=== PATIENT | female | born 1945 | race Caucasian/White ===

== ENCOUNTER 2016-06-03 20:51 | Emergency (ER) | payer OTHER ==
[2016-06-03 22:40] LABS: Hematocrit 37 % (35-47); Hemoglobin 12.5 g/dl (12.0-16.0); Mean Corpuscular HGB Conc 34 g/dl (31-36); Mean Corpuscular Hemoglobin 30 pg (27-31); Mean Corpuscular Volume 90 fL (80-97); Mean Platelet Volume 10 um3 (7.4-10.4); Red Blood Count 4.16 10^6/ul (4.0-5.4); Red Cell Distribution Width 14 % (10.5-15)
--- NOTE | 2016-06-03 22:50 | RAD ---
Indication: Palpitations. 2 views of the chest including dual energy PA views demonstrate no mediastinal shift. Heart is of normal size and configuration. Lung beaver are clear. When compared to previous exam of September 25, 2015 no significant change is noted. IMPRESSION: No active cardiopulmonary disease is noted.
[2016-06-03 22:57] LABS: Albumin 3.8 g/dL (3.2-5.2); BUN/Creatinine Ratio 17.2 (8-20); Calcium 9.3 mg/dL (8.6-10.3); EGFR Non-African American 64.6 (>60); Globulin 2.9 g/dL (2-4); Magnesium 1.8 mg/dL (1.9-2.7); Potassium 3.9 mmol/L (3.5-5.0); Total Bilirubin 0.3 mg/dL (0.2-1.0); Total Protein 6.7 g/dL (6.4-8.9)
--- NOTE | 2016-06-03 23:10 | ED ---
taylor Miller Timothy, scribed for Jimmy Nice MD on 06/03/16 at 2134 . Palpitations / Dysrhythmia - HPI Summary HPI Summary: Dyana Singleton is a 70 yo female presenting to [facility] with irregular heart beat for the past 3 days with accompanying CP. She states she felt dizzy, which was alleviated when laying down. She has also noticed an increase in her blood pressure. She states she has a Hx of Afib. her MHx includes HTN, Afib, DVT, asthma, colitis, GI bleed, DM II, schizophrenia, bipolar disorder, anxiety. - History of Current Complaint Chief Complaint: EDDysrhythmPalp Time Seen by Provider: 06/03/16 21:30 Hx Obtained From: Patient Onset/Duration: Sudden Onset Timing: Intermittent Episodes Lasting: Severity Initially: Moderate Severity Currently: Moderate Character: Fast, Irregular Associated Signs & Symptoms: Dizzy - Allergy/Home Medications Allergies/Adverse Reactions: Allergies Allergy/AdvReac Type Severity Reaction Status Date / Time Codeine Allergy Bleeding Verified 06/03/16 20:56 PMH/Surg Hx/FS Hx/Imm Hx Endocrine/Hematology History: Reports: Hx Diabetes - Type 2 Cardiovascular History: Reports: Hx Deep Vein Thrombosis, Hx Hypertension Denies: Hx Congestive Heart Failure Respiratory History: Reports: Hx Asthma GI History: Reports: Hx Gall Bladder Disease - cholecystectomy, Hx Hiatal Hernia Musculoskeletal History: Reports: Hx Arthritis, Hx Back Problems - arthritis in lower back Sensory History: Reports: Hx Contacts or Glasses Denies: Hx Cataracts, Hx Eye Injury, Hx Eye Prosthesis, Hx Glaucoma, Hx Legally Blind, Hx Macular Degeneration, Hx Deafness, Hx Hearing Aid, Hx Hearing Problem, Other Sensory Impairments Opthamlomology History: Reports: Hx Contacts or Glasses Denies: Hx Cataracts, Hx Eye Injury, Hx Eye Prosthesis, Hx Glaucoma, Hx Legally Blind, Hx Macular Degeneration, Other Sensory Impairments Neurological History: Denies: Hx Dementia, Hx Developmental Delay, Hx Headaches, Hx Migraine, Hx Nerve Disease, Hx Seizures, Hx Spinal Cord Injury, Hx Transient Ischemic Attacks (TIA), Other Neuro Impairments/Disorders Psychiatric History: Reports: Hx Anxiety, Hx Schizophrenia, Hx Bipolar Disorder Denies: Hx Eating Disorder, Hx of Violent Episodes Against Others - Cancer History Cancer Type, Location and Year: breast - Surgical History Surgery Procedure, Year, and Place: right mastectomy, cholecystectomy, appendectomy Infectious Disease History: No Infectious Disease History: Denies: Hx Clostridium Difficile, Hx Hepatitis, Hx Human Immunodeficiency Virus (HIV), Hx of Known/Suspected MRSA, Hx Shingles, Hx Tuberculosis, History Other Infectious Disease, Traveled Outside the [place] in Last 30 Days - Family History Known Family History: Positive: Hypertension, Other - psychotic disorder, depression, alcohol abuse Negative: Cardiac Disease, Diabetes - Social History Alcohol Use: None Substance Use Type: Reports: None Smoking Status (MU): Never Smoked Tobacco Have You Smoked in the Last Year: No Review of Systems Constitutional: Other - high blood pressure Eyes: Negative ENT: Negative Positive: Palpitations Respiratory: Negative Gastrointestinal: Negative Genitourinary: Negative Musculoskeletal: Negative Skin: Negative Neurological: Other - dizzy Psychological: Normal All Other Systems Reviewed And Are Negative: Yes Physical Exam Triage Information Reviewed: Yes Vital Signs On Initial Exam: Initial Vitals Temp Pulse Resp BP Pulse Ox 97.9 F 91 18 228/89 96 06/03/16 20:55 06/03/16 20:55 06/03/16 20:55 06/03/16 20:55 06/03/16 20:55 Vital Signs Reviewed: Yes Appearance: Positive: Well-Appearing, No Pain Distress Skin: Positive: Warm Head/Face: Positive: Normal Head/Face Inspection Eyes: Positive: NORMA ENT: Positive: Hearing grossly normal Neck: Positive: Supple Respiratory/Lung Sounds: Positive: Clear to Auscultation, Breath Sounds Present Cardiovascular: Positive: RRR Abdomen Description: Positive: Nontender, Soft Bowel Sounds: Positive: Present Musculoskeletal: Positive: Strength/ROM Intact Diagnostics - Vital Signs Vital Signs Temp Pulse Resp BP Pulse Ox 06/03/16 20:55 97.9 F 91 18 228/89 96 - Laboratory Lab Results: Lab Results 06/03/16 06/03/16 06/03/16 Range/Units 22:27 22:27 22:27 WBC 8.0 (3.5-10.8) 10^3/ul RBC 4.16 (4.0-5.4) 10^6/ul Hgb 12.5 (12.0-16.0) g/dl Hct 37 (35-47) % MCV 90 (80-97) fL MCH 30 (27-31) pg MCHC 34 (31-36) g/dl RDW 14 (10.5-15) % Plt Count 186 (150-450) 10^3/ul MPV 10 (7.4-10.4) um3 Neut % (Auto) 69.1 (38-83) % Lymph % (Auto) 22.3 L (25-47) % [place] % (Auto) 6.6 (1-9) % Eos % (Auto) 1.3 (0-6) % Baso % (Auto) 0.7 (0-2) % Absolute Neuts (auto) 5.5 (1.5-7.7) 10^3/ul Absolute Lymphs (auto) 1.8 (1.0-4.8) 10^3/ul Absolute Monos (auto) 0.5 (0-0.8) 10^3/ul Absolute Eos (auto) 0.1 (0-0.6) 10^3/ul Absolute Basos (auto) 0.1 (0-0.2) 10^3/ul Absolute Nucleated RBC 0 10^3/ul Nucleated RBC % 0 Sodium 139 (133-145) mmol/L Potassium 3.9 (3.5-5.0) mmol/L Chloride 105 (101-111) mmol/L Carbon Dioxide 28 (22-32) mmol/L Anion Gap 6 (2-11) mmol/L BUN 15 (6-24) mg/dL Creatinine 0.87 (0.51-0.95) mg/dL Est GFR ( Amer) 83.0 (>60) Est GFR (Non-Af Amer) 64.6 (>60) BUN/Creatinine Ratio 17.2 (8-20) Glucose 150 H (70-100) mg/dL Lactic Acid 1.6 (0.5-2.0) mmol/L Calcium 9.3 (8.6-10.3) mg/dL Magnesium 1.8 L (1.9-2.7) mg/dL Total Bilirubin 0.30 (0.2-1.0) mg/dL AST 14 (13-39) U/L ALT 10 (7-52) U/L Alkaline Phosphatase 59 (34-104) U/L Troponin I 0.00 (<0.04) ng/mL Total Protein 6.7 (6.4-8.9) g/dL Albumin 3.8 (3.2-5.2) g/dL Globulin 2.9 (2-4) g/dL Albumin/Globulin Ratio 1.3 (1-3) TSH Pending Result Diagrams: 06/03/16 22:27 06/03/16 22:27 Lab Statement: Any lab studies that have been ordered have been reviewed, and results considered in the medical decision making process. - Radiology CXR Xray Interpretation: No Acute Changes - IMPRESSION: No active cardiopulmonary disease is noted. Radiology Interpretation Completed By: Radiologist - EKG 2136 Cardiac Rate: NL - 81 BPM EKG Interpretation: NSR @ 81 BPM, normal EKG. Re-Evaluation - Re-Evaluation First Eval Re-Evaluation Time: 23:25 Change: Unchanged Comment: Pt is aware of the results of her lab and imaging studies. Course/Dx - Course Assessment/Plan: Dyana Singleton is a 70 yo female presenting to [facility] with heart palpitations, dizziness, and increasing blood pressure for the past 3 days. Her EKG was WNL. Her CXR suggests no active cardiopulmonary disease. After clinical examination and review of her EKG, imaging, and lab studies, she will be discharged home with palpitations and appropriate instructions. - Diagnoses Differential Diagnosis/HQI/PQRI: Positive: Other - palpitations Provider Diagnoses: Heart palpitations Discharge - Discharge Plan Condition: Stable Disposition: HOME Patient Education Materials: Palpitations (ED) Referrals: Bird Gonzales MD [Primary Care Provider] - 2 Days Additional Instructions: Please follow up with your primary care physician regarding your visit to the emergency department today. Return to the emergency department with any new or recurring symptoms. The documentation as recorded by the taylor gooden Timothy accurately reflects the service I personally performed and the decisions made by me, Jimmy Nice MD.
[2016-06-03 23:38] LABS: TSH (Thyroid Stimulating Horm) 2.31 mcIU/mL (0.34-5.60)
[2016-06-03 23:46] VITALS: BP 190/90
== END 2016-06-03 23:44 | disposition home or self-care (01) ==
LOC: ED 20:51
DX: R00.2 Palpitations (principal); R42 Dizziness and giddiness
CPT/HCPCS: 36415; 71020; 80053; 83605; 83735; 84443; 84484; 85025; 93005; 99283

== ENCOUNTER 2017-09-14 11:39 | Emergency (ER) | payer MEDICARE ==
[2017-09-14 12:46] LABS: ABS Basophils 0.1 10^3/ul (0-0.2); ABS Eosinophils 0.1 10^3/ul (0-0.6); ABS Lymphocytes 1.5 10^3/ul (1.0-4.8); ABS Monocytes 0.5 10^3/ul (0-0.8); ABS Neutrophils 4.6 10^3/ul (1.5-7.7); ABS Nucleated RBC 0 10^3/ul; Eosinophil % 1.1 % (0-6); Hematocrit 40 % (35-47); Hemoglobin 13.3 g/dl (12.0-16.0); Lymphocyte % 21.9 % (25-47); Mean Corpuscular HGB Conc 34 g/dl (31-36); Mean Corpuscular Hemoglobin 30 pg (27-31); Mean Corpuscular Volume 88 fL (80-97); Mean Platelet Volume 9.7 um3 (7.4-10.4); Nucleated Red Blood Cells % 0.1; Platelet Count 193 10^3/ul (150-450); Red Blood Count 4.48 10^6/ul (4.00-5.40); Red Cell Distribution Width 14 % (10.5-15); White Blood Count 6.6 10^3/ul (3.5-10.8)
--- NOTE | 2017-09-14 12:59 | RAD ---
HISTORY: WEAKNESS COMPARISONS: June 03, 2016 VIEWS: 1: frontal portable view of the chest at 12:46 PM FINDINGS: LINES AND TUBES: None. CARDIOMEDIASTINAL SILHOUETTE: The cardiomediastinal silhouette is normal for portable technique. PLEURA: The costophrenic angles are sharp. No pleural abnormalities are noted. LUNG PARENCHYMA: The lungs are clear. ABDOMEN: The upper abdomen is clear. There is no subphrenic gas. BONES AND SOFT TISSUES: No bone or soft tissue abnormalities are noted. IMPRESSION: NO ACTIVE CARDIOPULMONARY DISEASE.
--- NOTE | 2017-09-14 13:00 | ED ---
Dizziness - HPI Summary HPI Summary: This is Zuly gooden, documenting for attending, Chuy Coffey MD. This patient is a 72 year old F presenting to [facility] with a chief complaint of sudden dizziness while at the [facility] today. She states that the nurse at the facility took her blood pressure, and she was found to be orthostatic with a BP of 134/70 laying, 118/80 sitting, and 80/70 standing. Patient reports recent fatigue for the past few days without coughing, vomiting , and urinary symptoms. Denies LOC. She reports a new diuretic, spironolactone, that she began taking on the 09/01/17. She additionally reports mild intermittent abdominal for the past few weeks. - History Of Current Complaint Chief Complaint: EDDizziness Stated Complaint: NEAR SYNCOPE,LOW BP Time Seen by Provider: 09/14/17 12:22 Hx Obtained From: Patient Onset/Duration: Suddenly Character: Dizzy Aggravating Factor(s): Supine To Erect Alleviating Factor(s): Lying Down Associated Signs And Symptoms: Positive: Change In Medication - Allergies/Home Medications Allergies/Adverse Reactions: Allergies Allergy/AdvReac Type Severity Reaction Status Date / Time codeine Allergy Bleeding Verified 09/14/17 12:03 Home Medications: Home Medications Albuterol HFA INHALER* [Ventolin HFA Inhaler*] 2 puff INH Q4H PRN 09/14/17 [ History Confirmed 09/14/17] Carvedilol TAB* [Coreg TAB*] 12.5 mg PO BID 09/14/17 [History Confirmed 09/14/17 ] Cholecalciferol TAB* [Vitamin D TAB*] 1,000 unit PO DAILY 09/14/17 [History Confirmed 09/14/17] Cyanocobalamin TAB* [Vitamin B12 TAB*] 500 mcg PO DAILY 09/14/17 [History Confirmed 09/14/17] Dicyclomine CAP* [Bentyl CAP*] 10 mg PO TID PRN 09/14/17 [History Confirmed ] Escitalopram (NF) [Lexapro 20 mg (NF)] 20 mg PO DAILY 09/14/17 [History Confirmed 09/14/17] Lisinopril TAB* [Prinivil TAB 10 MG*] 20 mg PO BID 09/14/17 [History Confirmed 09/14/17] LoraTADine TAB(NF) [Claritin 10 MG TAB(NF)] 10 mg PO DAILY PRN 09/14/17 [ History Confirmed 09/14/17] PMH/Surg Hx/FS Hx/Imm Hx Endocrine/Hematology History: Reports: Hx Diabetes - Type 2 Cardiovascular History: Reports: Hx Deep Vein Thrombosis, Hx Hypertension Denies: Hx Congestive Heart Failure Respiratory History: Reports: Hx Asthma GI History: Reports: Hx Gall Bladder Disease - cholecystectomy, Hx Hiatal Hernia Musculoskeletal History: Reports: Hx Arthritis, Hx Back Problems - arthritis in lower back Sensory History: Reports: Hx Contacts or Glasses Denies: Hx Cataracts, Hx Eye Injury, Hx Eye Prosthesis, Hx Glaucoma, Hx Legally Blind, Hx Macular Degeneration, Hx Deafness, Hx Hearing Aid, Hx Hearing Problem, Other Sensory Impairments Opthamlomology History: Reports: Hx Contacts or Glasses Denies: Hx Cataracts, Hx Eye Injury, Hx Eye Prosthesis, Hx Glaucoma, Hx Legally Blind, Hx Macular Degeneration, Other Sensory Impairments Neurological History: Denies: Hx Dementia, Hx Developmental Delay, Hx Headaches, Hx Migraine, Hx Nerve Disease, Hx Seizures, Hx Spinal Cord Injury, Hx Transient Ischemic Attacks (TIA), Other Neuro Impairments/Disorders Psychiatric History: Reports: Hx Anxiety, Hx Schizophrenia, Hx Bipolar Disorder Denies: Hx Eating Disorder, Hx of Violent Episodes Against Others - Cancer History Cancer Type, Location and Year: breast - Surgical History Surgery Procedure, Year, and Place: right mastectomy, cholecystectomy, appendectomy Infectious Disease History: No Infectious Disease History: Denies: Hx Clostridium Difficile, Hx Hepatitis, Hx Human Immunodeficiency Virus (HIV), Hx of Known/Suspected MRSA, Hx Shingles, Hx Tuberculosis, History Other Infectious Disease, Traveled Outside the [place] in Last 30 Days - Family History Known Family History: Positive: Hypertension, Other - psychotic disorder, depression, alcohol abuse Negative: Cardiac Disease, Diabetes - Social History Alcohol Use: None Substance Use Type: Reports: None Smoking Status (MU): Never Smoked Tobacco Have You Smoked in the Last Year: No Review of Systems Positive: Fatigue. Negative: Fever, Chills Negative: Erythema Negative: Sore Throat Negative: Chest Pain Negative: Shortness Of Breath, Cough Negative: Abdominal Pain, Vomiting, Nausea Negative: dysuria, hematuria Negative: Myalgia, Edema Neurological: Other - dizziness Negative: Headache All Other Systems Reviewed And Are Negative: Yes Physical Exam - Summary Physical Exam Summary: Constitutional: Well-developed, Well-nourished, Alert. (-) Distressed Skin: Warm, Dry HENT: Normocephalic; Atraumatic Eyes: Conjunctiva normal Neck: Musculoskeletal ROM normal neck. (-) JVD, (-) Stridor, (-) Tracheal deviation Cardio: Rhythm regular, rate normal, Heart sounds normal; Intact distal pulses; The pedal pulses are 2+ and symmetric. Radial pulses are 2+ and symmetric. (-) Murmur Pulmonary/Chest wall: Effort normal. (-) Respiratory distress, (-) Wheezes, (-) Rales Abd: Soft, (-), epigastric tenderness, (-) Distension, (-) Guarding, (-) Rebound Musculoskeletal: (-) Edema Lymph: (-) Cervical adenopathy Neuro: Alert, Oriented x3 Psych: Mood and affect Normal Triage Information Reviewed: Yes Vital Signs On Initial Exam: Initial Vitals Temp Pulse Resp BP Pulse Ox 97.8 F 63 18 157/99 98 09/14/17 11:59 09/14/17 11:59 09/14/17 11:59 09/14/17 11:59 09/14/17 11:59 Vital Signs Reviewed: Yes Diagnostics - Vital Signs Vital Signs Temp Pulse Resp BP Pulse Ox 09/14/17 11:59 97.8 F 63 18 157/99 98 - Laboratory Lab Results: Lab Results 09/14/17 Range/Units 12:35 WBC 6.6 (3.5-10.8) 10^3/ul RBC 4.48 (4.00-5.40) 10^6/ul Hgb 13.3 (12.0-16.0) g/dl Hct 40 (35-47) % MCV 88 (80-97) fL MCH 30 (27-31) pg MCHC 34 (31-36) g/dl RDW 14 (10.5-15) % Plt Count 193 (150-450) 10^3/ul MPV 9.7 (7.4-10.4) um3 Neut % (Auto) 69.1 (38-83) % Lymph % (Auto) 21.9 L (25-47) % [place] % (Auto) 7.1 H (0-7) % Eos % (Auto) 1.1 (0-6) % Baso % (Auto) 0.8 (0-2) % Absolute Neuts (auto) 4.6 (1.5-7.7) 10^3/ul Absolute Lymphs (auto) 1.5 (1.0-4.8) 10^3/ul Absolute Monos (auto) 0.5 (0-0.8) 10^3/ul Absolute Eos (auto) 0.1 (0-0.6) 10^3/ul Absolute Basos (auto) 0.1 (0-0.2) 10^3/ul Absolute Nucleated RBC 0 10^3/ul Nucleated RBC % 0.1 Result Diagrams: 09/14/17 12:35 09/14/17 12:35 Lab Statement: Any lab studies that have been ordered have been reviewed, and results considered in the medical decision making process. - Radiology CXR Radiology Interpretation Completed By: Radiologist - NO ACTIVE CARDIOPULMONARY DISEASE. ED Physician has reviewed this report. - EKG 1239 Cardiac Rate: Bradycardia - 57 BPM EKG Rhythm: Sinus Bradycardia EKG Interpretation: no STEMI Dizzy Course/Dx - Course Course Of Treatment: 72 year old F presenting to [facility] with a chief complaint of sudden dizziness while at the [facility] today. She states that the nurse at the facility took her blood pressure, and she was found to be orthostatic with a BP of 134/70 laying, 118/80 sitting, and 80/70 standing. Patient reports recent fatigue for the past few days without coughing, vomiting , and urinary symptoms. Denies LOC. She reports a new diuretic, spironolactone, that she began taking on the 09/01/17. EKG and CXR are unremarkable. Bloodwork is remarkable. UA is indicative of a UTI. Patient is givn Bactrim and IV Fluids. Patient is instructed to stop taking spironolactone and is discharged. - Diagnoses Provider Diagnoses: Orthostatic hypotension, Dehydration, Medication adverse effect, UTI (urinary tract infection) Discharge - Sign-Out/Discharge Documenting (check all that apply): Patient Departure - Discharge Plan Condition: Stable Disposition: HOME Prescriptions: Sulfamethox/Trimethoprim DS* [Bactrim DS 800/160 TAB*] 1 tab PO BID #14 tab Patient Education Materials: Dehydration (ED), Hypotension (ED) Referrals: Bird Gonzales MD [Primary Care Provider] - 2 Days Additional Instructions: Stop using the Spironolactone. RETURN TO THE EMERGENCY DEPARTMENT FOR CHANGING OR WORSENING SYMPTOMS.
[2017-09-14 13:04] LABS: EGFR Non-African American 66.8 (>60)
[2017-09-14] MEDS ORDERED: NS 0.9% 1000 ML* 1,000 ML IV ONE (15:18)
[2017-09-14 16:25] LABS: Urine Appearance Cloudy; Urine Blood 1+ (Negative); Urine Color Yellow; Urine Ketones Negative (Negative); Urine Protein Negative (Negative); Urine Red Blood Cell Trace(0-2/hpf) (Absent); Urine Specific Gravity 1.003 (1.010-1.030); Urine Urobilinogen Negative (Negative); Urine White Blood Cell Trace(0-5/hpf) (Absent)
[2017-09-14] MEDS ORDERED: Sulfamethox/Trimethoprim DS 800/160* TAB PO ONE (18:08)
[2017-09-14 18:40] VITALS: BP 117/93
== END 2017-09-14 18:37 | disposition home or self-care (01) ==
LOC: ED 11:39
DX: I95.1 Orthostatic hypotension (principal); E86.0 Dehydration; N39.0 Urinary tract infection, site not specified; R42 Dizziness and giddiness; T50.0X5A Adverse effect of mineralocorticoids and their antagonists, initial encounter; Y92.9 Unspecified place or not applicable; R53.83 Other fatigue; R00.1 Bradycardia, unspecified; I10 Essential (primary) hypertension; Z88.5 Allergy status to narcotic agent; F41.9 Anxiety disorder, unspecified; F20.9 Schizophrenia, unspecified; F31.9 Bipolar disorder, unspecified; Z82.49 Family history of ischemic heart disease and other diseases of the circulatory system; Z81.8 Family history of other mental and behavioral disorders; Z81.1 Family history of alcohol abuse and dependence
CPT/HCPCS: 36415; 71045; 80053; 81003; 81015; 83605; 84484; 85025; 87086; 93005; 99283

== ENCOUNTER 2017-09-23 15:37 | Inpatient (IN) | payer MEDICARE ==
[2017-09-23] MEDS ORDERED: LORazepam TAB(*) 1 MG PO ONE (16:34)
--- NOTE | 2017-09-23 16:34 | ED ---
Psychiatric Complaint - HPI Summary HPI Summary: This is berkley Fiore documenting for attending Johny Ashley MD. This patient is a 72 year old F presenting to [facility] accompanied by her daughter and psychology lecturer with a chief complaint of dissociating since yesterday. Patient denies any pain, cough, or rhinorrhea. The psych worker states that the pt brought a knife into her clinic because she was worried about SI. Pt is terrified of hospitals and doctors, per social media analyst. Pts daughter states that the pt came in for low BP last week. The initial trauma related to the dissociating occurred in childhood. - History Of Current Complaint Chief Complaint: EDMentalHealth Time Seen by Provider: 09/23/17 16:14 Hx Obtained From: Family/Edi Consultant - social media analyst, daughter Onset/Duration: Sudden Onset Timing: Constant Severity Initially: Severe Severity Currently: Severe Character: Fearful, Anxious Has Suicidal: Reports: Demonstrates Gesture - brought in knife to psych clinic bc of possible SI - Allergies/Home Medications Allergies/Adverse Reactions: Allergies Allergy/AdvReac Type Severity Reaction Status Date / Time codeine Allergy Bleeding Verified 09/23/17 16:00 PMH/Surg Hx/FS Hx/Imm Hx Endocrine/Hematology History: Reports: Hx Diabetes - Type 2 Cardiovascular History: Reports: Hx Deep Vein Thrombosis, Hx Hypertension Denies: Hx Congestive Heart Failure Respiratory History: Reports: Hx Asthma GI History: Reports: Hx Gall Bladder Disease - cholecystectomy, Hx Hiatal Hernia Musculoskeletal History: Reports: Hx Arthritis, Hx Back Problems - arthritis in lower back Sensory History: Reports: Hx Contacts or Glasses Denies: Hx Cataracts, Hx Eye Injury, Hx Eye Prosthesis, Hx Glaucoma, Hx Legally Blind, Hx Macular Degeneration, Hx Deafness, Hx Hearing Aid, Hx Hearing Problem, Other Sensory Impairments Opthamlomology History: Reports: Hx Contacts or Glasses Denies: Hx Cataracts, Hx Eye Injury, Hx Eye Prosthesis, Hx Glaucoma, Hx Legally Blind, Hx Macular Degeneration, Other Sensory Impairments Neurological History: Denies: Hx Dementia, Hx Developmental Delay, Hx Headaches, Hx Migraine, Hx Nerve Disease, Hx Seizures, Hx Spinal Cord Injury, Hx Transient Ischemic Attacks (TIA), Other Neuro Impairments/Disorders Psychiatric History: Reports: Hx Anxiety, Hx Schizophrenia, Hx Bipolar Disorder Denies: Hx Eating Disorder, Hx of Violent Episodes Against Others - Cancer History Cancer Type, Location and Year: breast - Surgical History Surgery Procedure, Year, and Place: right mastectomy, cholecystectomy, appendectomy Infectious Disease History: No Infectious Disease History: Denies: Hx Clostridium Difficile, Hx Hepatitis, Hx Human Immunodeficiency Virus (HIV), Hx of Known/Suspected MRSA, Hx Shingles, Hx Tuberculosis, History Other Infectious Disease, Traveled Outside the [place] in Last 30 Days - Family History Known Family History: Positive: Hypertension, Other - psychotic disorder, depression, alcohol abuse Negative: Cardiac Disease, Diabetes - Social History Alcohol Use: None Substance Use Type: Reports: None Smoking Status (MU): Never Smoked Tobacco Have You Smoked in the Last Year: No Review of Systems Negative: Nasal Discharge Negative: Cough Negative: Myalgia Positive: Anxious, Other - dissociating All Other Systems Reviewed And Are Negative: No - Comments Additional Review of Systems Comments: Unable to obtain review of systems secondary to patient's inability to cooperate with questioning Physical Exam - Summary Physical Exam Summary: Appearance: Well-appearing, Well-nourished Skin: Warm, dry, no obvious rash Eyes: sclera anicteric, no conjunctival pallor ENT: mucous membranes moist Neck: deferred Respiratory: No signs of respiratory distress Cardiovascular: Appears well perfused, pulses are nml Abdomen: deferred Musculoskeletal: Moving all 4 extremities without obvious discomfort Neurological: Awake and alert, mentation is normal, speech is fluent and appropriate Psychiatric: quite anxious, crying GCS: 15 Triage Information Reviewed: Yes Vital Signs On Initial Exam: Initial Vitals Temp Pulse Resp BP Pulse Ox 99.7 F 67 20 129/88 97 09/23/17 15:53 09/23/17 15:53 09/23/17 15:53 09/23/17 15:53 09/23/17 15:53 Vital Signs Reviewed: Yes Diagnostics - Vital Signs Vital Signs Temp Pulse Resp BP Pulse Ox 09/23/17 15:53 99.7 F 67 20 129/88 97 - Laboratory Result Diagrams: 09/23/17 16:30 09/23/17 16:30 Lab Statement: Any lab studies that have been ordered have been reviewed, and results considered in the medical decision making process. - CT Brain' CT Interpretation Completed By: Radiologist - Chronic appearing changes as described above without CT evidence of acute intracranial abnormality. ED Physician has reviewed this report Course/Dx - Course Course Of Treatment: 72-year-old woman with mental complaints, history of same, no history of any recent medical illness and screening laboratory studies are unremarkable. The patient is cleared for mental health evaluation. - Differential Dx/Clinical Impression Differential Diagnosis/HQI/PQRI: Positive: Acute Psychosis Provider Diagnosis: Unspecified psychosis - Physician Notifications Discussed Care Of Patient With: Yariel Callahan Time Discussed With Above Provider: 19:12 - unspecified psychosis, admit to [facility] Discharge - Sign-Out/Discharge Documenting (check all that apply): Patient Departure - Admit to [facility] - Discharge Plan Condition: Stable Disposition: PSYCHIATRIC FACILITY-OTHER - Billing Disposition and Condition Condition: STABLE Disposition: Psychiatric Facility Other
[2017-09-23 16:38] LABS: ABS Basophils 0.1 10^3/ul (0-0.2); ABS Eosinophils 0.1 10^3/ul (0-0.6); ABS Lymphocytes 1.9 10^3/ul (1.0-4.8); ABS Monocytes 0.5 10^3/ul (0-0.8); ABS Neutrophils 6.2 10^3/ul (1.5-7.7); ABS Nucleated RBC 0 10^3/ul; Eosinophil % 0.7 % (0-6); Hematocrit 40 % (35-47); Hemoglobin 13.5 g/dl (12.0-16.0); Mean Corpuscular HGB Conc 34 g/dl (31-36); Mean Corpuscular Hemoglobin 30 pg (27-31); Mean Corpuscular Volume 88 fL (80-97); Mean Platelet Volume 10.3 um3 (7.4-10.4); Nucleated Red Blood Cells % 0.1; Platelet Count 207 10^3/ul (150-450); Red Blood Count 4.53 10^6/ul (4.00-5.40); Red Cell Distribution Width 14 % (10.5-15); White Blood Count 8.7 10^3/ul (3.5-10.8)
[2017-09-23 16:55] LABS: EGFR Non-African American 67.8 (>60)
[2017-09-23 17:42] LABS: Urine Appearance Clear; Urine Blood Negative (Negative); Urine Color Straw; Urine Ketones Negative (Negative); Urine Protein Negative (Negative); Urine Specific Gravity 1.002 (1.010-1.030); Urine Urobilinogen Negative (Negative)
--- NOTE | 2017-09-23 20:00 | RAD ---
INDICATION: Altered mental status COMPARISON: None. TECHNIQUE: Contiguous axial sections of the brain were obtained from the skull base to the vertex without contrast. FINDINGS: The ventricles, cisterns and sulci mild symmetrical involutional changes. There is a mild degree of periventricular and subcortical white matter hypoattenuation most consistent with mild microvascular disease. The muro-white matter differentiation is adequately maintained and there is no sulcal effacement. No significant focal abnormality or mass effect is present. There is no evidence for intracranial hemorrhage. No significant focal osseous abnormality is present. The visualized portion of the paranasal sinuses appear clear. The mastoid air cells are well aerated bilaterally. IMPRESSION: Chronic appearing changes as described above without CT evidence of acute intracranial abnormality.
[2017-09-23] MEDS ORDERED: Al Hydrox/Mg Hydrox/Simet LIQ* 30 ML UDC PO PRN (22:22)
[2017-09-23] MEDS ORDERED: Dicyclomine CAP* 10 MG PO PRN (22:25)
[2017-09-23] MEDS ORDERED: Cetirizine* 10 MG TAB PO PRN (22:26)
[2017-09-23] MEDS ORDERED: Albuterol HFA INHALER* 8 gm MDI INH PRN (22:30)
[2017-09-23] MEDS: Lisinopril TAB* 10 MG PO SCH (23:39)
[2017-09-23] MEDS: Carvedilol TAB* 6.25 MG PO SCH (23:39)
[2017-09-23] MEDS: Acetaminophen TAB* 325 MG PO PRN (23:43)
[2017-09-24] MEDS: Cholecalciferol TAB* 1000 UNITS PO SCH (08:40)
[2017-09-24] MEDS: Lisinopril TAB* 10 MG PO SCH ×2 (08:40→20:59)
[2017-09-24] MEDS: CMCS: Escitalopram (NF) 10 MG TAB PO SCH (08:41)
[2017-09-24] MEDS: Vitamin THERAPEUTIC TAB PO SCH (08:41)
[2017-09-24] MEDS: Cyanocobalamin TAB* 500 MCG PO SCH (08:41)
[2017-09-24] MEDS: Carvedilol TAB* 6.25 MG PO SCH ×2 (08:42→20:59)
[2017-09-24] MEDS ORDERED: BREXPIPRAZOLE 0.5 MG PO SCH (09:00)
[2017-09-24] MEDS: LORazepam TAB(*) 0.5 MG PO PRN (16:55)
[2017-09-24] MEDS: REXULTI 1 MG PO SCH (21:00)
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
[2017-09-25] MEDS: CMCS: Escitalopram (NF) 10 MG TAB PO SCH (10:08)
[2017-09-25] MEDS: REXULTI 1 MG PO SCH (10:08)
[2017-09-25] MEDS: Lisinopril TAB* 10 MG PO SCH ×2 (10:09→21:35)
[2017-09-25] MEDS: Carvedilol TAB* 6.25 MG PO SCH ×2 (10:09→21:35)
[2017-09-25] MEDS: Vitamin THERAPEUTIC TAB PO SCH (10:10)
[2017-09-25] MEDS: Cyanocobalamin TAB* 500 MCG PO SCH (10:10)
[2017-09-25] MEDS: Cholecalciferol TAB* 1000 UNITS PO SCH (10:10)
[2017-09-26] MEDS: Cyanocobalamin TAB* 500 MCG PO SCH (08:45)
[2017-09-26] MEDS: Vitamin THERAPEUTIC TAB PO SCH (08:45)
[2017-09-26] MEDS: Cholecalciferol TAB* 1000 UNITS PO SCH (08:45)
[2017-09-26] MEDS: Carvedilol TAB* 6.25 MG PO SCH ×2 (08:45→22:13)
[2017-09-26] MEDS: CMCS: Escitalopram (NF) 10 MG TAB PO SCH (08:46)
[2017-09-26] MEDS: Lisinopril TAB* 10 MG PO SCH ×2 (08:47→22:13)
[2017-09-26] MEDS: REXULTI 1 MG PO SCH (08:47)
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
[2017-09-27] MEDS: Cholecalciferol TAB* 1000 UNITS PO SCH (08:16)
[2017-09-27] MEDS: CMCS: Escitalopram (NF) 10 MG TAB PO SCH (08:16)
[2017-09-27] MEDS: Vitamin THERAPEUTIC TAB PO SCH (08:16)
[2017-09-27] MEDS: Carvedilol TAB* 6.25 MG PO SCH ×2 (08:16→19:23)
[2017-09-27] MEDS: Lisinopril TAB* 10 MG PO SCH ×2 (08:16→19:23)
[2017-09-27] MEDS: Cyanocobalamin TAB* 500 MCG PO SCH (08:16)
[2017-09-27] MEDS: REXULTI 1 MG PO SCH (08:17)
[2017-09-27] MEDS ORDERED: BREXPIPRAZOLE 1 MG TABLET PO ONE (11:28)
--- NOTE | 2017-09-27 13:00 | PN ---
MHU: Group Therapy Note - Service Type Service Type: [id number] Group Psychotherapy - Cognitive Behavioral Group Therapy ( CBT):Patient was attentive and participatory in CBT programming this morning, and remained in good behavioral control. Patient expressed positive insights regarding relevant treatment interventions and goals.
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
[2017-09-27] MEDS: LORazepam TAB(*) 0.5 MG PO PRN (19:23)
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
[2017-09-28] MEDS: Cholecalciferol TAB* 1000 UNITS PO SCH (09:28)
[2017-09-28] MEDS: Cyanocobalamin TAB* 500 MCG PO SCH (09:28)
[2017-09-28] MEDS: Carvedilol TAB* 6.25 MG PO SCH ×2 (09:28→20:37)
[2017-09-28] MEDS: Vitamin THERAPEUTIC TAB PO SCH (09:29)
[2017-09-28] MEDS: CMCS: Escitalopram (NF) 10 MG TAB PO SCH (09:29)
[2017-09-28] MEDS: Lisinopril TAB* 10 MG PO SCH ×2 (09:30→20:38)
[2017-09-28] MEDS: BREXPIPRAZOLE 1 MG PO SCH (09:31)
[2017-09-28] MEDS: LORazepam TAB(*) 0.5 MG PO PRN (10:42)
[2017-09-28] MEDS: Prazosin CAP* 1 MG PO SCH (20:39)
[2017-09-29] MEDS: Lisinopril TAB* 10 MG PO SCH ×2 (08:33→21:25)
[2017-09-29] MEDS: Carvedilol TAB* 6.25 MG PO SCH ×2 (08:33→21:25)
[2017-09-29] MEDS: CMCS: Escitalopram (NF) 10 MG TAB PO SCH (08:34)
[2017-09-29] MEDS: Cyanocobalamin TAB* 500 MCG PO SCH (08:34)
[2017-09-29] MEDS: Vitamin THERAPEUTIC TAB PO SCH (08:35)
[2017-09-29] MEDS: BREXPIPRAZOLE 1 MG PO SCH (08:35)
[2017-09-29] MEDS: Cholecalciferol TAB* 1000 UNITS PO SCH (08:35)
--- NOTE | 2017-09-29 16:19 | PN ---
MHU: Group Therapy Note - Service Type Service Type: [id number] Group Psychotherapy - Medication Education Group: Patient was attentive and participatory in group, and remained in good behavioral control. Patient expressed positive insights regarding relevant treatment interventions. Patient stated understanding of material discussed and had appropriate questions.
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
[2017-09-29] MEDS: Prazosin CAP* 1 MG PO SCH (21:25)
[2017-09-29] MEDS: Acetaminophen TAB* 325 MG PO PRN (22:21)
[2017-09-30] MEDS: Vitamin THERAPEUTIC TAB PO SCH (09:51)
[2017-09-30] MEDS: Carvedilol TAB* 6.25 MG PO SCH ×2 (09:51→21:00)
[2017-09-30] MEDS: Lisinopril TAB* 10 MG PO SCH (09:51)
[2017-09-30] MEDS: CMCS: Escitalopram (NF) 10 MG TAB PO SCH (09:52)
[2017-09-30] MEDS: Cholecalciferol TAB* 1000 UNITS PO SCH (09:52)
[2017-09-30] MEDS: Cyanocobalamin TAB* 500 MCG PO SCH (09:52)
[2017-09-30] MEDS: BREXPIPRAZOLE 1 MG PO SCH (09:53)
[2017-09-30] MEDS: Acetaminophen TAB* 325 MG PO PRN (11:00)
[2017-09-30] MEDS: LORazepam TAB(*) 0.5 MG PO PRN (11:01)
[2017-09-30] MEDS: Prazosin CAP* 1 MG PO SCH (21:00)
[2017-10-01] MEDS: BREXPIPRAZOLE 1 MG PO SCH (10:07)
[2017-10-01] MEDS: Carvedilol TAB* 6.25 MG PO SCH ×3 (10:07→21:38)
[2017-10-01] MEDS: Cholecalciferol TAB* 1000 UNITS PO SCH (10:08)
[2017-10-01] MEDS: Lisinopril TAB* 10 MG PO SCH (10:08)
[2017-10-01] MEDS: Cyanocobalamin TAB* 500 MCG PO SCH (10:08)
[2017-10-01] MEDS: Vitamin THERAPEUTIC TAB PO SCH (10:09)
[2017-10-01] MEDS: CMCS: Escitalopram (NF) 10 MG TAB PO SCH (10:14)
[2017-10-01] MEDS: Acetaminophen TAB* 325 MG PO PRN (16:36)
[2017-10-01] MEDS ORDERED: Carvedilol TAB* 6.25 MG PO ONE (17:10)
--- NOTE | 2017-10-01 18:05 | PN ---
Subjective - Subjective Date of Service: 10/01/17 Service Type: 16900 Hosp care 15 min low complexity Subjective: Ms. STRANGE remains low profile and visible on the unit. Her blood pressure was low this morning and she was symptomatic with dizziness. BP meds were on hold in the morning with good response. She actually didn't offer any psychiatric complaint rather said she was fine. Objective - Appearance Appearance: Healthy Appearing, Obese Dysmorphic Features: No Hygiene: Normal Grooming: Fairly Well Kept - Behavior Psychomotor Activities: Normal Exhibits Abnormal Movement: No - Attitude and Relatedness Attitude and Relatedness: Appropriate Eye Contact: Good - Speech Quality: Unpressured Latencies: Normal Quantity: Appropriate - Mood Patient's Decription of Mood: "Fine" - Affect Observed Affect: Non-labile Affect Consistent with: Euthymia - Thought Process Patient's Thought Process: Coherent, Goal Directed Thought Content: No Passive Wish, No Suicidal Planning, No Homicidal Ideation, No Paranoid Ideation - Sensorium Experiencing Hallucinations: No, Sensorium is Clear Type of Hallucinations: Visual: No, Auditory: No, Command: No - Level of Consciousness Level of Consciousness: Alert Orientation: Yes Intact, Yes Orientated to Time, Yes Orientated to Place, Yes Orientated to Person - Impulse Control Impulse Control: Intact - Insight and Judgement Insight and Judgement: Poor - Group Participation Particating in Group Activities: Yes - Medication Management Medication Management Adherence: Yes Assessment - Assessment Merits Inpatient Hospitalization: Consolidate Improvements, Pending Safe DC Plan Inpatient DSM-V Dx: F33.3 Clinical Impression: Doing better today and appears to be at baseline. Plan - Plan Treatment Plan: Name: NANCY STRANGE Birthdate: 1945 [id number] Continued Medication Management: Continue Outpt Medication Medications: Current Medications Acetaminophen (Tylenol Tab*) 650 mg PO Q4H PRN PRN Reason: PAIN or TEMP > 101 F Last Admin: 10/01/17 16:36 Dose: 650 mg Al Hydrox/Mg Hydrox/Simethicone (Maalox Plus*) 30 ml PO Q4H PRN PRN Reason: INDIGESTION Albuterol (Ventolin Hfa Inhaler*) 2 puff INH Q4H PRN PRN Reason: SHORTNESS OF BREATH Brexpiprazole (Rexulti) 2 mg PO DAILY [facility] Last Admin: 10/01/17 10:07 Dose: 2 mg Carvedilol (Coreg Tab*) 12.5 mg PO BID [facility] Last Admin: 10/01/17 16:46 Dose: 12.5 mg Cetirizine HCl (Zyrtec*) 10 mg PO DAILY PRN PRN Reason: ALLERGIES Cholecalciferol (Vitamin D Tab*) 1,000 units PO DAILY [facility] Last Admin: 10/01/17 10:08 Dose: 1,000 units Cyanocobalamin (Vitamin B12 Tab*) 500 mcg PO DAILY [facility] Last Admin: 10/01/17 10:08 Dose: 500 mcg Dicyclomine HCl (Bentyl Cap*) 10 mg PO TID PRN PRN Reason: -PAIN Escitalopram Oxalate (Lexapro (Nf)) 20 mg PO DAILY [facility] Last Admin: 10/01/17 10:14 Dose: 20 mg Lisinopril (Prinivil Tab*) 20 mg PO DAILY [facility] Last Admin: 10/01/17 10:08 Dose: Not Given Lorazepam (Ativan Tab(*)) 0.5 mg PO Q6H PRN PRN Reason: ANXIETY Last Admin: 09/30/17 11:01 Dose: 0.5 mg Multivitamins (Theragran Tab*) 1 tab PO DAILY [facility] Last Admin: 10/01/17 10:09 Dose: 1 tab Prazosin HCl (Minipress Cap*) 2 mg PO BEDTIME [facility] Last Admin: 09/30/17 21:00 Dose: 2 mg - Discharge Plan Discharge Plan: [facility]
[2017-10-01] MEDS: Prazosin CAP* 1 MG PO SCH (20:47)
[2017-10-02] MEDS: LORazepam TAB(*) 0.5 MG PO PRN ×2 (04:26→17:53)
[2017-10-02] MEDS: Lisinopril TAB* 10 MG PO SCH (09:34)
[2017-10-02] MEDS: Cyanocobalamin TAB* 500 MCG PO SCH (09:34)
[2017-10-02] MEDS: Cholecalciferol TAB* 1000 UNITS PO SCH (09:34)
[2017-10-02] MEDS: Vitamin THERAPEUTIC TAB PO SCH (09:35)
[2017-10-02] MEDS: CMCS: Escitalopram (NF) 10 MG TAB PO SCH (09:35)
[2017-10-02] MEDS: Carvedilol TAB* 6.25 MG PO SCH ×2 (09:36→22:39)
[2017-10-02] MEDS: BREXPIPRAZOLE 1 MG PO SCH (09:36)
[2017-10-02] MEDS: Prazosin CAP* 1 MG PO SCH (22:39)
[2017-10-03 07:56] VITALS: BP 157/79
[2017-10-03] MEDS: Carvedilol TAB* 6.25 MG PO SCH (09:04)
[2017-10-03] MEDS: CMCS: Escitalopram (NF) 10 MG TAB PO SCH (09:04)
[2017-10-03] MEDS: BREXPIPRAZOLE 1 MG PO SCH (09:04)
[2017-10-03] MEDS: Lisinopril TAB* 10 MG PO SCH (09:05)
[2017-10-03] MEDS: Cyanocobalamin TAB* 500 MCG PO SCH (09:06)
[2017-10-03] MEDS: Vitamin THERAPEUTIC TAB PO SCH (09:06)
[2017-10-03] MEDS: Cholecalciferol TAB* 1000 UNITS PO SCH (09:06)
[2017-10-03] MEDS: Acetaminophen TAB* 325 MG PO PRN (09:59)
--- NOTE | 2017-10-04 20:10 | DS ---
CC: Dr. Hardwick; Dr. Gonzales; [facility]; Dr. Martinez DISCHARGE SUMMARY: DATE OF ADMISSION: 09/23/17 DATE OF DISCHARGE: 10/03/17 SUPERVISING PSYCHIATRIST: Dr. German Lares. DISCHARGE DIAGNOSIS: Posttraumatic stress disorder. CONDITION AT THE TIME OF DISCHARGE: Improved. The patient is euthymic with bright affect. She ivan es suicidal ideation and reports readiness to be discharged. She states she is eager to return to [facility] and is looking forward to meeting with her therapist and her psychiatrist this week at [facility]. She also reports plan to participate in [facility] program this week. The patient also endorses mild anxiety in regards to being discharged, social environment. Lighting Engineering Technician an d high school social studies tutor validate this. The patient has participated fully on the unit. She has been in beha vioral control, decreased to 30 minute observation and allowed staff pass. She has had associated ep isodes and reports much relief from the use of lorazepam. The patient also is eager to be discharged and follow up directly with international marketing executive, Dr. Martinez to ascertain the need for sleep study. MENTAL STATUS EXAM: The patient is a 72-year-old white female, who appears stated age. She is casua lly dressed in her own clothing and ADLs are completed. She is euthymic with congruent affect. The patient is alert and oriented x3. Eye contact is good. Her speech is soft, articulate and with norm al rhythm. Thought process is logical, goal directed and coherent. Thought content is negative for SI, HI, or passive wish. She denies AH or VH. There is no evidence of perceptual thought dist urbance. Psychomotor activity is normal. Insight and judgment are good. Fund of knowledge is excel lent and intelligence is estimated at average as evidenced by vocabulary and academic achievements. INSTRUCTIONS GIVEN TO THE PATIENT: A. Medications: 1. Brexpiprazole 2 mg p.o. daily. 2. Lexapro 20 mg daily. 3. Lisinopril 20 mg daily. 4. Lorazepam 0.5 mg p.o. b.i.d. p.r.n. anxiety. 5. Prazosin 2 mg p.o. at bedtime. The above medications were currently electronically prescribed to [facility]. The following medicat ions will be resumed by her primary care provider and/or urology nurse: 1. Loratadine 10 mg daily. 2. Dicyclomine 10 mg p.o. t.i.d. p.r.n. 3. Vitamin B12 500 mcg p.o. daily. 4. Vitamin B 1000 units daily. 5. Coreg 12.5 mg p.o. b.i.d. 6. Albuterol inhaler 2 puffs q.4 hours p.r.n. SOB. B. Diet: Low fat, low cholesterol. C. Activity: Ambulation as tolerated. Tobacco cessation is not applicable. There are no pending la bs and the patient is referred to Dr. Martinez for sleep studies. D. Followup Care: The patient will follow up with [facility] and her established provider. She has an appointment with Vito on , 10/06/17, at 9 a.m. and appointment with Dr. Reyes same day at 02:30 p.m. As stated above, she will follow up directly with Dr. Martinez post discharge. She will follow up with urology nurse, Dr. Hardwick, on 10/12/17, at 02:40 p. m. We also rescheduled her stress echocardiogram for 10/17/17, at noon. She will follow up w ith primary care provider, Dr. Gonzales, on 10/11/17, at 2 p.m. E. Substance abuse. Followup is not applicable. HOSPITAL COURSE: Part A: Reason for admission: Please see H and P from Dr. Callahan on 09/23/17. He r full history, the patient presented to the emergency department due to suicidal ideations and incre ased PTSD symptoms. The patient is a 72-year-old female with a known extensive history of mental illness, psychiatric hospitalizations. The patient was last admitted to this hospital in 2016 and has been working diligently with a therapist since then. She has had increased episodes of diss ociation including wandering at night. The patient reports recent increase in audio and visual hallu cinations including seeing blood, cutting her wrist. Part B: Psychiatric treatment rendered: The patient was admitted to the adult behavioral services [email or web address] on involuntary status. Code status was full and she was placed on 15-minute checks for her safet y. She was encouraged to participate in supportive milieu, individual sessions or staff and psycho e ducational groups. Outpatient medications were initially continued by admitting psychiatrist. During the course of admission, the patient was noted to have dissociative episodes. She would prese nt in a repressed manner. She would report hallucinations of seeing blood in the bathroom. She often spoke of assisting in the of someone named Agata. Staff and providers utilized grounding techn ique to reorient the patient, which she was receptive to and able to demonstrate on grounding techniq ues. She has been developing through therapy. We increased her brexpiprazole and added lorazepam p. r.n., continued Lexapro at current dose. Due to patient's cardiac history, this technical proposal writer consulted [facility] patient's current urology nurse, Dr. Hardwick to discuss the use of prazosin to treat PTSD disorder . This was titrated to 2 mg at bedtime and lisinopril was decreased to 20 mg once a day. The patient also had a history of dehydration and UTI. She was encouraged to remain hydrated and given a pitche r with marking to denote hourly intake of fluids. The patient reports this to be helpful and states i ntend to continue this practice at home. Laboratory data while in hospital included a CBC, which was grossly unremarkable. Her chemistry profi le was within normal limits with the exception of a hemoglobin A1c of 6.2, cholesterol was mildly karthik vated at 2.7, TSH normal at 1.79. Urinalysis within normal limits and toxicology was negative. She received a brain CT while in the emergency department, which ruled out acute intracranial abnormality . The patient's granddaughter and [id number] were available for treatment planning and discharge carlito moreno. It was noted that they were very supportive and concerned for patient's welfare. On Tuesday the , the patient reported eagerness to be discharged, however, due to family being out of town and professional resources not being available over the weekend, treatment team decided to monitor th e patient over the weekend. The patient remained hospitalized. She reported some dissociative episo jarrod and was also monitored for orthostatic hypotension. On the day of discharge as stated above, the patient reported readiness for discharge. Her granddaughter was available for discharge process. Th e patient was escorted to Dr. Martinez's office in this building by social work. After her appointment, this technical proposal writer happened to see her in the hallway walking to the entrance and the patient reported rece iving hopeful information in regards to impact of sleep and likely sleep apnea on current symptoms. As stated above, the patient denies suicidal ideations throughout the course of admission. She was g iven information on how to contact this technical proposal writer with questions or concerns post discharge due to oblig ations of treatment in the least restrictive setting, discharge was agreed upon by treatment team. GERBER FAIR, VERIFIER OPERATOR [id number]/CPS #: [id number]
== END 2017-10-03 11:10 | disposition home or self-care (01) | DRG 885 ==
LOC: ED 15:37 → BSU 19:39
PROVIDERS: ADMIT Psychiatry & Neurology Psychiatry; ATTEND Psychiatry & Neurology Psychiatry
DX: F33.3 Major depressive disorder, recurrent, severe with psychotic symptoms (principal); R45.851 Suicidal ideations; E11.9 Type 2 diabetes mellitus without complications; E66.01 Morbid (severe) obesity due to excess calories; I10 Essential (primary) hypertension; Z62.810 Personal history of physical and sexual abuse in childhood; Z62.812 Personal history of neglect in childhood; Z68.32 Body mass index [BMI] 32.0-32.9, adult; Z79.899 Other long term (current) drug therapy; Z79.84 Long term (current) use of oral hypoglycemic drugs
CPT/HCPCS: 36415; 70450; 80053; 80061; 80307; 80320; 80329; 81003; 83036; 84443; 85025; 90853; 99222; 99231; 99232; 99285; A9270-GY; G0480

== ENCOUNTER 2018-01-30 14:29 | Emergency (ER) | payer MEDICARE ==
[2018-01-30] MEDS ORDERED: Nicotine Inhaler* 10 MG AMP INH PRN (16:29)
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
[2018-01-30 16:56] LABS: ABS Basophils 0.1 10^3/ul (0-0.2); ABS Eosinophils 0.1 10^3/ul (0-0.6); ABS Lymphocytes 1.6 10^3/ul (1.0-4.8); ABS Monocytes 0.5 10^3/ul (0-0.8); ABS Neutrophils 5.4 10^3/ul (1.5-7.7); ABS Nucleated RBC 0 10^3/ul; Eosinophil % 1.3 %; Hematocrit 39 % (35-47); Lymphocyte % 21.4 %; Mean Corpuscular HGB Conc 33 g/dl (31-36); Mean Corpuscular Hemoglobin 31 pg (27-31); Mean Corpuscular Volume 92 fL (80-97); Mean Platelet Volume 9.9 fL (7.4-10.4); Nucleated Red Blood Cells % 0; Platelet Count 211 10^3/ul (150-450); Red Blood Count 4.25 10^6/ul (4.00-5.40); Red Cell Distribution Width 14 % (10.5-15); White Blood Count 7.6 10^3/ul (3.5-10.8)
[2018-01-30] MEDS ORDERED: Mouth Piece, Nicotine* 1 EACH CARTRIDGE INH ONE (17:00)
[2018-01-30 17:26] LABS: Urine Appearance Cloudy; Urine Blood Negative (Negative); Urine Color Amber; Urine Ketones Trace (Negative); Urine Protein Negative (Negative); Urine Red Blood Cell Trace(0-2/hpf) (Absent); Urine Specific Gravity 1.018 (1.010-1.030); Urine Urobilinogen Negative (Negative); Urine White Blood Cell Trace(0-5/hpf) (Absent)
[2018-01-30 17:36] LABS: EGFR Non-African American 52.8 (>60)
--- NOTE | 2018-01-31 00:18 | ED ---
Progress - Progress Note Progress Note: Patient is received as a sign out from Dr. Coffey to Dr. Cunha at 2200 pending MHE of this mental health patient. 0012 - Dr. Melton had reviewed the patient's case. Patient will be discharged to home with Dx of PTSD. Dr. Cunha is agreeable with this. - Consult/PCP Time Called: 00:00 Course/Dx - Course Course Of Treatment: Patient is received as a sign out from Dr. Coffey to Dr. Cunha at 2200 pending MHE of this mental health patient. 0012 - Dr. Melton had reviewed the patient's case. Patient will be discharged to home with Dx of PTSD. Dr. Cunha is agreeable with this. - Diagnoses Provider Diagnoses: PTSD (post-traumatic stress disorder) - Provider Notifications Discussed Care Of Patient With: Camilo Melton Time Discussed With Above Provider: 00:12 Instructed by Provider To: Other - 0012 - Dr. Melton had reviewed the patient' s case. Patient will be discharged to home with Dx of PTSD. Dr. Cunha is agreeable with this. Discharge - Sign-Out/Discharge Documenting (check all that apply): Patient Departure - discharge - Discharge Plan Condition: Stable Disposition: HOME Referrals: Bird Gonzales MD [Primary Care Provider] - - Attestation Statements Document Initiated by Scribe: Yes Documenting Scribe: KRIS JJ Provider For Whom Juan is Documenting (Include Credential): MARRY CUNHA MD Scribe Attestation: KRIS Miller scribed for MARRY CUNHA MD on 01/31/18 at 0017. Status of Scribe Document: Ready
[2018-01-31 00:36] VITALS: BP 118/54
== END 2018-01-31 00:46 | disposition home or self-care (01) ==
LOC: ED 14:29
DX: F43.10 Post-traumatic stress disorder, unspecified (principal); F44.9 Dissociative and conversion disorder, unspecified; Z79.82 Long term (current) use of aspirin; E11.9 Type 2 diabetes mellitus without complications; Z86.718 Personal history of other venous thrombosis and embolism; J45.909 Unspecified asthma, uncomplicated; Z85.3 Personal history of malignant neoplasm of breast
CPT/HCPCS: 36415; 80053; 80307; 80320; 80329; 81003; 81015; 84443; 85025; 87086; 99283; G0480

== ENCOUNTER 2018-04-19 15:32 | Emergency (ER) | payer MEDICARE ==
[2018-04-19 15:57] VITALS: BP 128/65
--- NOTE | 2018-04-19 16:34 | UC ---
Ear Complaint HPI - HPI Summary HPI Summary: 72 y/o female presents to the urgent care c/o sinus congestion, sinus pain, B/l ear pain, body aches, productive cough and wheezing for the past 4 days. Pt reports Hx of Asthma. Wheezing started about 2 days ago, she has been using the albuterol inhaler to alleviate symptoms. Today she feels ringing of the ear and mild dizziness at times today RT>LF ear. Pt reports symptoms stated w/ N/V and diarrhea for 2 days which has now resolved. She has been drinking fluids and eating well. Pt denies SOB, chest pain, palpitations, abdominal pain, N/V/D. - History of Current Complaint Chief Complaint: UCRespiratory Stated Complaint: EARS DIZZY Time Seen by Provider: 04/19/18 16:31 Hx Obtained From: Patient Onset/Duration: Gradual Onset, Lasting Days - 4 days, Still Present, Worse Since - yesterday Severity Initially: Mild Severity Currently: Moderate Pain Intensity: 6 Pain Scale Used: 0-10 Numeric Alleviating Factors: OTC Meds, Nothing - albuterol inhaler Associated Signs/Symptoms: Positive: Discharge - nasl discharge, URI Symptoms - Allergies/Home Medications Allergies/Adverse Reactions: Allergies Allergy/AdvReac Type Severity Reaction Status Date / Time codeine Allergy Bleeding Verified 04/19/18 15:57 Home Medications: Home Medications Brexpiprazole (Nf) [Rexulti] 1 mg PO BID 04/19/18 [History Confirmed 04/19/18] Vortioxetine (NF) [Trintellix (NF)] 20 mg PO DAILY 04/19/18 [History Confirmed 04/19/18] PMH/Surg Hx/FS Hx/Imm Hx Previously Healthy: Yes Endocrine History: Diabetes Cardiovascular History: Hypertension Respiratory History: Asthma Psychological History: Anxiety, Depression - Surgical History Surgical History: Yes Surgery Procedure, Year, and Place: right mastectomy, cholecystectomy, appendectomy - Family History Known Family History: Positive: Hypertension, Other - psychotic disorder, depression, alcohol abuse Negative: Cardiac Disease, Diabetes - Social History Occupation: Retired Lives: Alone Alcohol Use: None Substance Use Type: None Smoking Status (MU): Never Smoked Tobacco Amount Used/How Often: Pt has not used tobacco product in the past 30 days Have You Smoked in the Last Year: No - Immunization History Most Recent Influenza Vaccination: 2014 Most Recent Tetanus Shot: 2015 Most Recent Pneumonia Vaccination: 2015 Review of Systems All Other Systems Reviewed And Are Negative: Yes Constitutional: Positive: Chills, Fatigue, Other - body aches Skin: Positive: Negative Eyes: Positive: Negative ENT: Positive: Ear Ache - B/L ear pain adn ringing of the ears, Nasal Discharge - yellowish, Sinus Congestion, Sinus Pain/Tenderness Respiratory: Positive: Cough - productive w/ yellowish phlegm, Other - wheezing Cardiovascular: Positive: Negative Gastrointestinal: Positive: Negative Genitourinary: Positive: Negative Motor: Positive: Negative Neurovascular: Positive: Negative Musculoskeletal: Positive: Myalgia Neurological: Positive: Negative Psychological: Positive: Negative Is Patient Immunocompromised?: No Physical Exam - Summary Physical Exam Summary: Vital Signs Reviewed: Yes General: well developed, well nourished old female sitting in the examining table w/o any apparent distress Eyes: Positive: Conjunctiva Clear - PERRLA, EOMI, fundi grossly normal. Positive maxially and frontal sinuses tenderness on percussion. ENT: Positive: Normal ENT inspection, Hearing grossly normal, Pharynx normal, Nasal congestion - edematous and erythematous nasal mucosa, Nasal drainage - yellowish drainage, TMs normal. Negative: Tonsillar swelling, Tonsillar exudate Neck: Positive: Supple, Nontender, No Lymphadenopathy Respiratory: no orthopnea or dyspnea. Able to speak in full sentences, no retractions or accessory muscle use, no tripod position, stridor, or head bobbing. Positive breath sounds bilaterally. Positive diffuse scattered wheezing and rhonchi on b/L lungs, no crackles or rales. Cardiovascular: Positive: RRR, No Murmur, Pulses Normal, Brisk Capillary Refill Abdomen Description: Positive: Nontender, No Organomegaly, Soft. Negative: CVA Tenderness (R), CVA Tenderness (L) Bowel Sounds: Positive: Present Musculoskeletal Exam: Normal Musculoskeletal: Positive: Strength Intact, ROM Intact, No Edema Neurological Exam: Normal Psychological Exam: Normal Skin Exam: Normal Triage Information Reviewed: Yes Vital Signs: Initial Vital Signs Temp 98.8 F 04/19/18 15:53 Pulse 67 04/19/18 15:53 Resp 14 04/19/18 15:53 BP 128/65 04/19/18 15:53 Pulse Ox 99 04/19/18 15:53 Ear Complaint Course/Dx - Course Course Of Treatment: 72 y/o female presents to the urgent care c/o sinus congestion, sinus pain, B/L ear pain, body aches, productive cough and wheezing for the past 4 days. Pt reports Hx of Asthma. Wheezing started about 2 days ago , she has been using the albuterol inhaler to alleviate symptoms. Today she feels ringing of the ear and mild dizziness at times today RT>LF ear. Pt reports symptoms stated w/ N/V and diarrhea for 2 days which has now resolved. She has been drinking fluids and eating well. Pt denies SOB, chest pain, palpitations, abdominal pain, N/V/D. Hx obtained. Pt w/ Pt w/ scattered wheezes on bilaterally lungs, and mild rhonchi, good air entry B/L on examination. O2Sat:99%. Rapid influenza A&B ordered: positive Influenza A. Chest X-ray ordered:Suggestion of COPD, no acute findings as per radiologist. Pt given Prednisone PO and Duoneb Treatment to alleviate symptoms. Pt tolerated well treatment and lungs improved,and wheezing resolved. Pt felt better. Patient prescribed Tamiflu, Prednisone taper dose. Pt given a Aerochamber at the clinic to use her Albuterol inhlaer at home. The patient was recommended to increase fluid intake, rest eat well. Take medications as recommended. Pt advised to returned to the clinic or f/u w/ her PCP in 2-3 days to make sure symptoms are improving. All D/C instructions explained. Patient understood and agree w/ plan of care. Pt and family memeber understood and agreed w/ plan of care. Pt left clinic hemodynamically stable , A&OX3 and ambulating. - Differential Dx/Diagnosis Differential Diagnosis/HQI/PQRI: Bronchitis, Otitis Externa, Otitis Media, Perforated TM, Pharyngitis, URI, Other - infleunza, panuemonia, asthma exaceration. Provider Diagnosis: Asthma exacerbation, Influenza A Discharge - Sign-Out/Discharge Documenting (check all that apply): Patient Departure - D/c home All imaging exams completed and their final reports reviewed: Yes - Discharge Plan Condition: Stable Disposition: HOME Prescriptions: Oseltamivir CAP* [Tamiflu CAP*] 75 mg PO BID #10 cap predniSONE TAB* [Deltasone 20 MG TAB*] 20 mg PO DAILY #8 tab Patient Education Materials: Asthma (ED), Influenza (ED) Referrals: Bird Gonzales MD [Primary Care Provider] - 2 Days David Soto MD [Medical Doctor] - If Needed Additional Instructions: 1- Please take the full course of the antiviral to avoid resistance. Encourage hand washing and wear a mask to avoid spreading. 2-Please continue taking Tylenol PO q6-8hrs prn as instructed after meals to alleviate fever, and sore throat. Increase fluid intake, eat well, rest and avoid strenuous exercise 3- Please take Prednisone PO as directed starting tomorrow. First dose given at the clinic today 4-Use albuterol inhaler w/ the aerochamber wheezing as directed . Increase fluid intake, rest and eat well. 5- If symptoms do not improve or worsen or your develop SOB with fever and severe wheezing please go immediately to the ER further evaluation and treatment. 6- F/u with your PCP in 2-3 days for further management on your Asthma - Billing Disposition and Condition Condition: STABLE Disposition: Home - Attestation Statements Provider Attestation: I was available for consult. This patient was seen by the CYNTHIA. The patient was not presented to, seen by, or examined by me. -Kenia
[2018-04-19] MEDS ORDERED: predniSONE TAB* 20 MG PO ONE (16:49)
[2018-04-19] MEDS ORDERED: Albuterol/Ipratropium NEB.SOL* Albuterol 2.5 MG/Ipratropium 0.5 MG 3 ML INH ONE (16:50)
[2018-04-19 17:00] LABS: Influenza A Molecular POSITIVE (Negative)
== END 2018-04-19 18:09 | disposition home or self-care (01) ==
LOC: UCEAST 15:32
DX: J45.901 Unspecified asthma with (acute) exacerbation (principal); R42 Dizziness and giddiness; J10.1 Influenza due to other identified influenza virus with other respiratory manifestations; E11.9 Type 2 diabetes mellitus without complications; I10 Essential (primary) hypertension; F32.9 Major depressive disorder, single episode, unspecified; Z88.5 Allergy status to narcotic agent
CPT/HCPCS: 71046; 99212; A9270-GY; G0463; J7512

== ENCOUNTER 2018-11-03 10:15 | Inpatient (IN) | payer MEDICARE ==
--- NOTE | 2018-11-03 10:25 | ED ---
Psychiatric Complaint - HPI Summary HPI Summary: 73 year old F brought in by EMS with police from [facility] to [facility] with a chief complaint of suicidal ideation since making suicidal comments to a major case detective at [facility] this morning per police. Per police, patient stated to major case detective at [facility] that patient planned to take a bunch of pills. Per EMS, patient was crying, anxious, agitated, and non-verbal when EMS arrived to [facility] and as patient was being transported to the ED. Per EMS, patient has cardiac hx. The patient rates the pain 0/10 in severity. Symptoms aggravated by recent stress. Symptoms alleviated by nothing. - History Of Current Complaint Hx Obtained From: EMS, Other: - police Onset/Duration: Lasting Hours, Still Present Timing: Constant Severity Currently: None Aggravating Factor(s): Recent Stress Alleviating Factor(s): Nothing - Allergies/Home Medications Allergies/Adverse Reactions: Allergies Allergy/AdvReac Type Severity Reaction Status Date / Time codeine Allergy Bleeding Verified 04/19/18 15:57 Home Medications: Home Medications Acetaminophen TAB* [Tylenol TAB*] 650 mg PO Q6H PRN 11/03/18 [History Confirmed 11/03/18] Cyclosporine 0.05% OPHTH (NF) [Restasis 0.05% OPHTH] 1 drop BOTH EYES DAILY [History Confirmed 11/03/18] Omeprazole (Nf) [Prilosec (NF)] 40 mg PO DAILY 11/03/18 [History Confirmed 11/03] Ranitidine TAB (NF) [Zantac TAB (NF)] 150 mg PO BID 11/03/18 [History Confirmed 11/03/18] Rosuvastatin (NF) [Crestor (NF)] 10 mg PO DAILY 11/03/18 [History Confirmed ] PMH/Surg Hx/FS Hx/Imm Hx Endocrine/Hematology History: Reports: Hx Diabetes - Type 2 Cardiovascular History: Reports: Hx Deep Vein Thrombosis, Hx Hypertension, Other Cardiovascular Problems/Disorders - premature heart rate Denies: Hx Congestive Heart Failure Respiratory History: Reports: Hx Asthma GI History: Reports: Hx Diverticulosis, Hx Gall Bladder Disease - cholecystectomy, Hx Hiatal Hernia, Other GI Disorders - 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 Musculoskeletal History: Reports: Hx Arthritis, Hx Back Problems - arthritis in lower back Sensory History: Reports: Hx Contacts or Glasses Denies: Hx Cataracts, Hx Eye Injury, Hx Eye Prosthesis, Hx Glaucoma, Hx Legally Blind, Hx Macular Degeneration, Hx Deafness, Hx Hearing Aid, Hx Hearing Problem, Other Sensory Impairments Opthamlomology History: Reports: Hx Contacts or Glasses Denies: Hx Cataracts, Hx Eye Injury, Hx Eye Prosthesis, Hx Glaucoma, Hx Legally Blind, Hx Macular Degeneration, Other Sensory Impairments Neurological History: Denies: Hx Dementia, Hx Developmental Delay, Hx Headaches, Hx Migraine, Hx Nerve Disease, Hx Seizures, Hx Spinal Cord Injury, Hx Transient Ischemic Attacks (TIA), Other Neuro Impairments/Disorders Psychiatric History: Reports: Hx Anxiety, Hx Panic Disorder, Hx Post Traumatic Stress Disorder, Hx Inpatient Treatment, Hx Schizophrenia, Hx Bipolar Disorder, Hx Suicide Attempt, Other Psychiatric Issues/Disorders - disassociative Denies: Hx Eating Disorder, Hx of Violent Episodes Against Others, Hx Substance Abuse - Cancer History Cancer Type, Location and Year: breast CA - Surgical History Surgery Procedure, Year, and Place: right mastectomy, cholecystectomy, appendectomy Infectious Disease History: Denies: Hx Clostridium Difficile, Hx Hepatitis, Hx Human Immunodeficiency Virus (HIV), Hx of Known/Suspected MRSA, Hx Shingles, Hx Tuberculosis, History Other Infectious Disease - Family History Known Family History: Positive: Hypertension, Other - psychotic disorder, depression, alcohol abuse Negative: Cardiac Disease, Diabetes - Social History Alcohol Use: None Hx Substance Use: No Substance Use Type: Reports: None Hx Tobacco Use: No Smoking Status (MU): Never Smoked Tobacco Amount Used/How Often: Pt has not used tobacco product in the past 30 days Have You Smoked in the Last Year: No Review of Systems Negative: Fever Positive: Other - suicidal ideation All Other Systems Reviewed And Are Negative: Yes Physical Exam - Summary Physical Exam Summary: Appearance: The patient is well-nourished in no acute distress and in no acute pain. Skin: The skin is warm and dry, and skin color reflects adequate perfusion. HEENT: The head is normocephalic and atraumatic. The pupils are equal and reactive. The conjunctivae are clear and without drainage. Nares are patent and without drainage. Mouth reveals moist mucous membranes, and the throat is without erythema and exudate. The external ears are intact. The ear canals are patent and without drainage. The tympanic membranes are intact. Neck: The neck is supple with full range of motion and non-tender. There are no carotid bruits. There is no neck vein distension. Respiratory: Chest is non-tender. Lungs are clear to auscultation and breath sounds are symmetrical and equal. Cardiovascular: Heart is regular rate and rhythm. There is no murmur or rub auscultated. There is no peripheral edema and pulses are symmetrical and equal. Abdomen: The abdomen is soft and non-tender. There are normal bowel sounds heard in all four quadrants and there is no organomegaly palpated. Musculoskeletal: There is no back tenderness noted. Extremities are non-tender with full range of motion. There is good capillary refill. There is no peripheral edema or calf tenderness elicited. Neurological: Patient is alert and oriented to person, place and time. The patient has symmetrical motor strength in all four extremities. Cranial nerves are grossly intact. Deep tendon reflexes are symmetrical and equal in all four extremities. Psychiatric: Patient is agitated Triage Information Reviewed: Yes Vital Signs Reviewed: Yes Diagnostics - Laboratory Result Diagrams: 11/03/18 10:51 11/03/18 10:51 Lab Statement: Any lab studies that have been ordered have been reviewed, and results considered in the medical decision making process. Re-Evaluation - Re-Evaluation First Eval Re-Evaluation Time: 11:47 Comment: patient is medically cleared for MHE Course/Dx - Course Course Of Treatment: Dyana has gotten acutely exacerbated. She is actively suicidal and delusional. Dr. Lares is admitting her on a 939 basis. - Differential Dx/Clinical Impression Provider Diagnosis: Unspecified psychosis Discharge ED - Sign-Out/Discharge Documenting (check all that apply): Patient Departure - Admit Patient Received Moderate/Deep Sedation with Procedure: No - Discharge Plan Condition: Stable Disposition[place]ATR[place] [place]errals: Bird Gnozales MD [Primary Care Provider] - - Billing Disposition and Condition Condition: STABLE Disposition: Psychiatric Facility [facility] - Attestation Statements Document Initiated by Scribe: Yes Documenting Scribe: Danita Devi Provider For Whom Scribe is Documenting (Include Credential): Johny Sky MD Scribe Attestation: Danita Miller, scribed for Johny Sky MD on 11/03/18 at 1419. Scribe Documentation Reviewed: Yes Provider Attestation: The documentation as recorded by the scribe, Danita Devi accurately reflects the service I personally performed and the decisions made by me, Johny Sky MD Status of Scribrakan Document: Viewed
[2018-11-03 10:57] LABS: ABS Eosinophils 0.1 10^3/ul (0-0.6); ABS Lymphocytes 1.3 10^3/ul (1.0-4.8); ABS Monocytes 0.5 10^3/ul (0-0.8); ABS Neutrophils 6.4 10^3/ul (1.5-7.7); Eosinophil % 1.1 %; Hematocrit 38 % (35-47); Hemoglobin 12.6 g/dL (12.0-16.0); Mean Corpuscular HGB Conc 33 g/dL (31-36); Mean Corpuscular Hemoglobin 30 pg (27-31); Mean Corpuscular Volume 91 fL (80-97); Mean Platelet Volume 9.7 fL (7.4-10.4); Nucleated Red Blood Cells % 0.1; Platelet Count 210 10^3/uL (150-450); Red Blood Count 4.19 10^6 /uL (3.70-4.87); Red Cell Distribution Width 14 % (10-15); White Blood Count 8.3 10^3/uL (3.5-10.8)
[2018-11-03 11:15] LABS: Urine Appearance Clear; Urine Bilirubin Negative (Negative); Urine Blood Negative (Negative); Urine Color Yellow; Urine Glucose Negative (Negative); Urine Ketones Negative (Negative); Urine Nitrite Negative (Negative); Urine Protein Negative (Negative); Urine Urobilinogen Negative (Negative)
[2018-11-03 11:20] LABS: ALT 12 U/L (7-52); AST 18 U/L (13-39); Albumin 4.2 g/dL (3.2-5.2); Albumin/Globulin Ratio 1.6 (1-3); Alkaline Phosphatase 61 U/L (34-104); Anion Gap 7 mmol/L (2-11); BUN/Creatinine Ratio 21.2 (8-20); Blood Urea Nitrogen 18 mg/dL (6-24); CO2 Carbon Dioxide 28 mmol/L (22-32); Calcium 9.7 mg/dL (8.6-10.3); Chloride 104 mmol/L (101-111); EGFR African American 79.5 (>60); EGFR Non-African American 65.7 (>60); Globulin 2.7 g/dL (2-4); Glucose 128 mg/dL (70-100); Potassium 4.4 mmol/L (3.5-5.0); Sodium 139 mmol/L (135-145); Total Protein 6.9 g/dL (6.4-8.9)
[2018-11-03 11:44] LABS: Acetaminophen < 15 mcg/mL; Alcohol < 10 mg/dL (<10); Salicylate < 2.50 mg/dL (<30)
[2018-11-03 11:50] LABS: Urine Benzodiazepine Screen None Detected (None Detect); Urine Opiates Screen None Detected (None Detect)
[2018-11-03] MEDS ORDERED: Albuterol HFA INHALER* 8 gm MDI INH PRN ×2 (11:51→14:15)
[2018-11-03] MEDS ORDERED: Cetirizine* 10 MG TAB PO PRN (11:51)
[2018-11-03] MEDS ORDERED: BREXPIPRAZOLE 1 MG PO SCH (12:00)
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
[2018-11-03] MEDS ORDERED: Al Hydrox/Mg Hydrox/Simet LIQ* 30 ML UDC PO PRN (16:27)
[2018-11-03] MEDS: Vitamin THERAPEUTIC TAB PO SCH (17:00)
[2018-11-03] MEDS ORDERED: Carvedilol TAB* 6.25 MG PO ONE (17:00)
[2018-11-03] MEDS: Carvedilol TAB* 6.25 MG PO SCH (21:09)
[2018-11-03] MEDS: Famotidine TAB* 20 MG PO SCH (21:09)
[2018-11-03] MEDS: Lisinopril TAB* 10 MG PO SCH (21:10)
[2018-11-03] MEDS: BREXPIPRAZOLE 1 MG PO SCH (21:18)
[2018-11-04] MEDS ORDERED: CMCS: Vortioxetine (NF) 10 MG TAB (FORMERLY Brintellix) PO SCH (09:00)
[2018-11-04] MEDS ORDERED: VORTIOXETINE 20 MG PO SCH (09:00)
[2018-11-04] MEDS: Aspirin EC TAB* 81 MG TAB.EC PO SCH (09:22)
[2018-11-04] MEDS: Vitamin THERAPEUTIC TAB PO SCH (09:22)
[2018-11-04] MEDS: hydrOXYzine HCL TAB* 50 MG PO PRN (09:22)
[2018-11-04] MEDS: Pantoprazole TAB * 40 MG TAB PO SCH (09:22)
[2018-11-04] MEDS: Atorvastatin* 20 MG TAB PO SCH (09:22)
[2018-11-04] MEDS: Spironolactone TAB* 25 MG PO SCH (09:22)
[2018-11-04] MEDS: Famotidine TAB* 20 MG PO SCH ×2 (09:22→21:15)
[2018-11-04] MEDS: Lisinopril TAB* 10 MG PO SCH ×2 (09:22→21:15)
[2018-11-04] MEDS: Carvedilol TAB* 6.25 MG PO SCH ×2 (09:23→21:15)
[2018-11-04] MEDS: BREXPIPRAZOLE 1 MG PO SCH ×2 (09:27→21:14)
[2018-11-05] MEDS: Atorvastatin* 20 MG TAB PO SCH (09:52)
[2018-11-05] MEDS: Pantoprazole TAB * 40 MG TAB PO SCH (09:52)
[2018-11-05] MEDS: Spironolactone TAB* 25 MG PO SCH (09:52)
[2018-11-05] MEDS: Famotidine TAB* 20 MG PO SCH ×2 (09:52→20:40)
[2018-11-05] MEDS: Aspirin EC TAB* 81 MG TAB.EC PO SCH (09:52)
[2018-11-05] MEDS: Carvedilol TAB* 6.25 MG PO SCH ×2 (09:53→20:40)
[2018-11-05] MEDS: Vitamin THERAPEUTIC TAB PO SCH (09:53)
[2018-11-05] MEDS: BREXPIPRAZOLE 1 MG PO SCH ×2 (09:54→20:37)
[2018-11-05] MEDS: PTO: Vortioxetine (NF) 20 MG TAB (FORMERLY Brintellix) PO SCH (09:54)
[2018-11-05] MEDS: Lisinopril TAB* 10 MG PO SCH (09:55)
--- NOTE | 2018-11-05 20:27 | CONS ---
HOSPITAL MEDICINE CONSULTATION REPORT: DATE OF CONSULT: 11/03/18 PROVIDER: Елена Patrick NP. ATTENDING PHYSICIAN: [facility] Psychiatry . CONSULTING PHYSICIAN: Dr. Joey Mccain (dictated by Елена Patrick NP) . REASON FOR CONSULT: Hypotension. HISTORY OF PRESENT ILLNESS: Ms. Singleton is a 73-year-old female with a past medical history significant for noninsulin dependent diabetes, hypertension, hyperlipidemia, history of PTSD and suicidal ideation who was admitted to the behavioral health services after being brought to the emergency room for suicidal ideation with a plan to overdose by taking pills. The patient reports that for the past 10 days she has had decreased p.o. intake and has not been eating a lot. She does report that she has had episodes of dizziness when standing that resolves with lying down, over the past 10 days. While in the hospital, the patient had routine lab work drawn. She was admitted to the behavioral health service. They found her to be hypotensive, where the blood pressure is as low as 85/45. This morning repeat blood pressure was 101/59. Repeat this afternoon was 93/55 due to her hypotension. Hospital Medicine was asked to consult and co-manage her care. PAST MEDICAL HISTORY: Significant for: 1. History of breast cancer. 2. History of type 2 diabetes. 3. Hypertension. 4. Hyperlipidemia. 5. PTSD. PAST SURGICAL HISTORY: 1. Right mastectomy. 2. Cholecystectomy. 3. Appendectomy. 4. Tonsillectomy. HOME MEDICATIONS: Include: 1. Lisinopril 20 mg p.o. daily. 2. Aldactone 25 mg p.o. daily. 3. Carvedilol 12.5 mg p.o. b.i.d. 4. Crestor 10 mg p.o. daily. 5. Zantac 150 mg p.o. b.i.d. 6. Omeprazole 40 mg p.o. daily. 7. Claritin 10 mg p.o. daily p.r.n. 8. Rexulti 1 mg p.o. b.i.d. 9. Aspirin 81 mg p.o. daily. 10. Albuterol inhaler 2 puffs q.4 hours. 11. Acetaminophen 650 mg p.o. q.6 hours as needed. 12. Trintellix 20 mg p.o. daily. ALLERGIES: To CODEINE. FAMILY HISTORY: Father's history is unknown. Mother at a young age from issues associated with alcohol. SOCIAL HISTORY: The patient denies any tobacco, alcohol, or illicit drug use. She is retired. She is . She currently resides at the [facility]. She is independent. Surrogate decision maker in the event she is unable to make her own decisions is her son Reid Singleton. REVIEW OF SYSTEMS: Denies any fever, non unintended weight loss. No chest pain or edema. No cough, hemoptysis. She does report occasional exertional shortness of breath that is chronic. She does report some nausea that is associated with being upset. No vomiting, diarrhea or abdominal pain. She denies any gross hematuria or dysuria, focal weakness or sensory loss. Denies any visual complaints, dysphagia, arthralgias, myalgias, rashes, lesions or open sores. Denies any psychosis or anxiety. PHYSICAL EXAM: General: At this time, Ms. Singleton is alert and oriented, resting in her bed. She is in no acute distress. Vital Signs: Blood pressure 93/55, pulse is 68, respirations 16, O2 saturation 97%, temperature was 98.1. HEENT: Head is atraumatic, normocephalic. Eyes: EOMs are intact. Sclerae anicteric and not pale. Oral mucosa appeared to be dry. Neck is supple. Lungs are clear to auscultation bilaterally. No wheezes, rales, or rhonchi. Cardiac: S1, S2. Regular rate and rhythm. No murmurs, rubs, or gallops. Abdomen is soft and nontender. Bowel sounds are present x4. Musculoskeletal: She is able to move all 4 extremities. There is no clubbing or cyanosis. Skin is intact. Neurologic: She is awake, alert, oriented x3. Speech is clear. Thought process is intact. There are no gross focal deficits. DIAGNOSTIC STUDIES/LAB DATA: WBCs are 8.3, RBCs 4.19, hemoglobin 12.6, hematocrit is 38, platelet count is 210. Sodium 139, potassium 4.4, chloride 104, carbon dioxide is 28, anion gap is 7, BUN was 18, creatinine 0.85. Glucose is 128. ASTs were 18, ALTs were 12, alkaline phosphatase is 61. TSH was 2.30. Urine was within normal limits and urine toxicology was within normal limits. Salicylates and acetaminophen were both negative. Serum alcohol was also negative. IMPRESSION AND PLAN: Ms. Singleton is a 73-year-old female with a past medical history significant for hypertension, type 2 diabetes, hyperlipidemia, history of breast cancer, post-traumatic stress disorder, who presented to [facility] for suicidal ideation, was admitted to the behavioral health unit. She was found to be hypotensive today. Hospitalists recommendations are as follows: 1. Hypotension. I suspect her hypotension is related to increase in her lisinopril. The patient reports that she takes 20 of lisinopril daily in the evening and was given lisinopril 20 mg twice daily. I will stop her lisinopril. I am also going to stop her spironolactone at this time as the patient does report a 10-day history of poor p.o. intake and decrease in p.o. fluids. We will hold these medications at this time. I would encourage her to drink plenty of fluids 8 to 12 ounces with each meal and then in between each meal 8 ounces of fluid over the next 24 hours. Hospital Medicine will follow her along and reevaluate her blood pressure tomorrow. 2. Hyperlipidemia. She is to continue on her rosuvastatin as previously prescribed. 3. Suicidal ideation. Management per psychiatry staff. 4. FEN: She can have a regular diet. 5. Code status: She is a full code. 6. DVT prophylaxis: Per behavioral health services. TIME SPENT: Time spent on this consultation was 45 minutes, greater than half that time was spent at the bedside reviewing events leading thus far to her hospitalization, performing physical exam, and reviewing my plan of care. I have discussed this with my attending, Dr. Joey Mccain, he is in agreement with my plan. ЕЛЕНА PATRICK, MARKO [id number]/[facility] #: [id number] JERROD
--- NOTE | 2018-11-05 21:02 | PN ---
Subjective - Subjective Date of Service: 11/05/18 Service Type: 47488 Hosp care 25 min moderate complexity Subjective: Ms. Singleton continues to verbalize suicidal thoughts and intents. During the assessment she smiled and then says there is no reason for her to live and only way she can be in peace is to . Denies hallucinations. Objective - General Observations Appearance: Disheveled, Unkempt Appears Stated Age: Yes Stature: WNL Posture: WNL Eye Contact: Avoidant Behavior/Activity: WNL - Interaction Observations Attitude Towards Examiner: Cooperative Stated Mood: Euthymic Affect: Incongruent, Full Speech Pattern/Tone: Clear, Normal Volume Thought Process: Coherent, Goal Directed Perception: WNL Thought Content: Depressive, Self-Deprecatory Thought Process: Lethality: Suicidal Planning Hallucination Type: Denies Delusion Type: Denies - Cognitive Function Orientation: A&O x 4 Cognition: WNL Estimated Intelligence: Normal Judgment Within Normal Limits: No Ability to Make Reasonable Decisions: Serverely Impaired - Medication Compliance Cooperative with Inpatient Medication Regimen: Yes - Group Participation Participates in Group Activities: No Assessment - Assessment Merits Inpatient Hospitalization: For Immediate Safety, For Ongoing Evaluation Clinical Impression: Admitted due to active SI and a plan. Plan - Plan Treatment Plan: Name: NANCY SINGLETON Birthdate: 1945 [id number] Continued Medication Management: Continue Outpt Medication Medications: Current Medications Acetaminophen (Tylenol Tab*) 650 mg PO Q4H PRN PRN Reason: for pain; or Temp >101 F Al Hydrox/Mg Hydrox/Simethicone (Maalox Plus*) 30 ml PO Q4H PRN PRN Reason: INDIGESTION Albuterol (Ventolin Hfa Inhaler*) 2 puff INH Q4H PRN PRN Reason: SOB/WHEEZING Aspirin (Aspirin Ec Tab*) 81 mg PO DAILY [facility] Last Admin: 11/05/18 09:52 Dose: 81 mg Atorvastatin Calcium (Lipitor*) 20 mg PO DAILY [facility]; Protocol Last Admin: 11/05/18 09:52 Dose: 20 mg Brexpiprazole (Rexulti) 1 mg PO BID [facility] Last Admin: 11/05/18 20:37 Dose: 1 mg Carvedilol (Coreg Tab*) 12.5 mg PO BID [facility] Last Admin: 11/05/18 20:40 Dose: 12.5 mg Cetirizine HCl (Zyrtec*) 10 mg PO DAILY PRN PRN Reason: Allergy Symptoms Famotidine (Pepcid Tab*) 20 mg PO BID [facility]; Protocol Last Admin: 11/05/18 20:40 Dose: 20 mg Hydroxyzine HCl (Atarax Tab*) 50 mg PO Q6H PRN PRN Reason: anxiety Last Admin: 11/04/18 09:22 Dose: 50 mg Multivitamins (Theragran Tab*) 1 tab PO DAILY [facility] Last Admin: 11/05/18 09:53 Dose: 1 tab Pantoprazole Sodium (Protonix Tab*) 40 mg PO DAILY [facility] Last Admin: 11/05/18 09:52 Dose: 40 mg Vortioxetine (Trintellix (Nf)) 20 mg PO DAILY [facility] Last Admin: 11/05/18 09:54 Dose: 20 mg - Discharge Plan Discharge Plan: Outpatient Follow Up Outpatient Program[facility]
[2018-11-06] MEDS: Aspirin EC TAB* 81 MG TAB.EC PO SCH (09:32)
[2018-11-06] MEDS: Famotidine TAB* 20 MG PO SCH ×2 (09:32→20:52)
[2018-11-06] MEDS: Carvedilol TAB* 6.25 MG PO SCH ×2 (09:32→20:52)
[2018-11-06] MEDS: Atorvastatin* 20 MG TAB PO SCH (09:33)
[2018-11-06] MEDS: BREXPIPRAZOLE 1 MG PO SCH ×2 (09:34→20:54)
[2018-11-06] MEDS: Pantoprazole TAB * 40 MG TAB PO SCH (09:34)
[2018-11-06] MEDS: Vitamin THERAPEUTIC TAB PO SCH (09:34)
[2018-11-06] MEDS: PTO: Vortioxetine (NF) 20 MG TAB (FORMERLY Brintellix) PO SCH (09:35)
[2018-11-06] MEDS: Acetaminophen TAB* 325 MG PO PRN (15:52)
[2018-11-06] MEDS: Nystatin CREAM* 15 GM TUBE TOPICAL SCH (20:55)
--- NOTE | 2018-11-06 20:55 | PN ---
Subjective - Subjective Date of Service: 11/06/18 Service Type: 75760 Hosp care 35 min high complexity Subjective: Nancy discusses missing time and being confused. Her most recent episode that led to her "going to the beach," which is what she calls dissociating, was precipitated by missing a bus and then walking toward a truck. She states she has "layers" or alternate personalities that don't "serve any purpose now other than to protect me from myself." She has several layers including Malissa her helper, Sheri the 6 year old, Zeenat who is "running the show" for 11 days, and Donavan a 10 year old who, it has been suggested, is psychotic. We discuss her 1:1 status and she agrees to be reduced to constant observation while awake to maintain safety and comfort as much as possible. Objective - General Observations Appearance: Disheveled Appears Stated Age: Yes Stature: Overweight Posture: Slumped Eye Contact: Average Behavior/Activity: Slowed - Interaction Observations Attitude Towards Examiner: Cooperative, Anxious, Defensive Stated Mood: Dysphoric, Anxious Affect: Restricted Speech Pattern/Tone: Clear Thought Process: Coherent Perception: WNL Thought Content: Preoccupation/Ruminations, Self-Deprecatory Thought Process: Lethality: Suicidal Planning Hallucination Type: Denies Delusion Type: Denies - Cognitive Function Orientation: A&O x 4 Level of Consciousness: Awake, Alert, Appropriate Cognition: Impaired Cognition, Impaired Memory Estimated Intelligence: Normal Insight: WNL Judgment Within Normal Limits: No Ability to Make Reasonable Decisions: Serverely Impaired - Medication Compliance Cooperative with Inpatient Medication Regimen: Yes - Group Participation Participates in Group Activities: Partial Assessment - Assessment Merits Inpatient Hospitalization: For Immediate Safety Clinical Impression: Admitted due to active SI and a plan. Plan - Plan Treatment Plan: Name: NANCY STRANGE Birthdate: 1945 [id number] Continue medications as they are in outpatient. Focus on safety concerns. Continued Medication Management: Different Medication Medications: Current Medications Acetaminophen (Tylenol Tab*) 650 mg PO Q4H PRN PRN Reason: for pain; or Temp >101 F Last Admin: 11/06/18 15:52 Dose: 650 mg Al Hydrox/Mg Hydrox/Simethicone (Maalox Plus*) 30 ml PO Q4H PRN PRN Reason: INDIGESTION Albuterol (Ventolin Hfa Inhaler*) 2 puff INH Q4H PRN PRN Reason: SOB/WHEEZING Aspirin (Aspirin Ec Tab*) 81 mg PO DAILY [facility] Last Admin: 11/06/18 09:32 Dose: 81 mg Atorvastatin Calcium (Lipitor*) 20 mg PO DAILY [facility]; Protocol Last Admin: 11/06/18 09:33 Dose: 20 mg Brexpiprazole (Rexulti) 1 mg PO BID [facility] Last Admin: 11/06/18 09:34 Dose: 1 mg Carvedilol (Coreg Tab*) 12.5 mg PO BID [facility] Last Admin: 11/06/18 09:32 Dose: 12.5 mg Cetirizine HCl (Zyrtec*) 10 mg PO DAILY PRN PRN Reason: Allergy Symptoms Famotidine (Pepcid Tab*) 20 mg PO BID [facility]; Protocol Last Admin: 11/06/18 09:32 Dose: 20 mg Hydroxyzine HCl (Atarax Tab*) 50 mg PO Q6H PRN PRN Reason: anxiety Last Admin: 11/04/18 09:22 Dose: 50 mg Multivitamins (Theragran Tab*) 1 tab PO DAILY [facility] Last Admin: 11/06/18 09:34 Dose: 1 tab Nystatin (Nystatin Cream*) 1 applic TOPICAL BID [facility] Pantoprazole Sodium (Protonix Tab*) 40 mg PO DAILY [facility] Last Admin: 11/06/18 09:34 Dose: 40 mg Vortioxetine (Trintellix (Nf)) 20 mg PO DAILY [facility] Last Admin: 11/06/18 09:35 Dose: 20 mg - Discharge Plan Discharge Plan: Outpatient Follow Up Outpatient Program: [facility]
--- NOTE | 2018-11-07 07:35 | PN ---
Subjective - Subjective Date of Service: 11/07/18 Assessment - Assessment Clinical Impression: Admitted due to active SI and a plan. Plan - Plan Treatment Plan: Name: NANCY STRANGE Birthdate: 1945 [id number] Medications: Current Medications Acetaminophen (Tylenol Tab*) 650 mg PO Q4H PRN PRN Reason: for pain; or Temp >101 F Last Admin: 11/06/18 15:52 Dose: 650 mg Al Hydrox/Mg Hydrox/Simethicone (Maalox Plus*) 30 ml PO Q4H PRN PRN Reason: INDIGESTION Albuterol (Ventolin Hfa Inhaler*) 2 puff INH Q4H PRN PRN Reason: SOB/WHEEZING Aspirin (Aspirin Ec Tab*) 81 mg PO DAILY [facility] Last Admin: 11/06/18 09:32 Dose: 81 mg Atorvastatin Calcium (Lipitor*) 20 mg PO DAILY [facility]; Protocol Last Admin: 11/06/18 09:33 Dose: 20 mg Brexpiprazole (Rexulti) 1 mg PO BID [facility] Last Admin: 11/06/18 20:54 Dose: 1 mg Carvedilol (Coreg Tab*) 12.5 mg PO BID [facility] Last Admin: 11/06/18 20:52 Dose: 12.5 mg Cetirizine HCl (Zyrtec*) 10 mg PO DAILY PRN PRN Reason: Allergy Symptoms Famotidine (Pepcid Tab*) 20 mg PO BID [facility]; Protocol Last Admin: 11/06/18 20:52 Dose: 20 mg Hydroxyzine HCl (Atarax Tab*) 50 mg PO Q6H PRN PRN Reason: anxiety Last Admin: 11/04/18 09:22 Dose: 50 mg Multivitamins (Theragran Tab*) 1 tab PO DAILY [facility] Last Admin: 11/06/18 09:34 Dose: 1 tab Nystatin (Nystatin Cream*) 1 applic TOPICAL BID [facility] Last Admin: 11/06/18 20:55 Dose: 1 applic Pantoprazole Sodium (Protonix Tab*) 40 mg PO DAILY [facility] Last Admin: 11/06/18 09:34 Dose: 40 mg Vortioxetine (Trintellix (Nf)) 20 mg PO DAILY [facility] Last Admin: 11/06/18 09:35 Dose: 20 mg
--- NOTE | 2018-11-07 07:57 | PN ---
Assessment - Assessment Clinical Impression: Admitted due to active SI and a plan. Plan - Plan Treatment Plan: Name: NANCY STRANGE Birthdate: 1945 [id number] Medications: Current Medications Acetaminophen (Tylenol Tab*) 650 mg PO Q4H PRN PRN Reason: for pain; or Temp >101 F Last Admin: 11/06/18 15:52 Dose: 650 mg Al Hydrox/Mg Hydrox/Simethicone (Maalox Plus*) 30 ml PO Q4H PRN PRN Reason: INDIGESTION Albuterol (Ventolin Hfa Inhaler*) 2 puff INH Q4H PRN PRN Reason: SOB/WHEEZING Aspirin (Aspirin Ec Tab*) 81 mg PO DAILY [facility] Last Admin: 11/06/18 09:32 Dose: 81 mg Atorvastatin Calcium (Lipitor*) 20 mg PO DAILY [facility]; Protocol Last Admin: 11/06/18 09:33 Dose: 20 mg Brexpiprazole (Rexulti) 1 mg PO BID [facility] Last Admin: 11/06/18 20:54 Dose: 1 mg Carvedilol (Coreg Tab*) 12.5 mg PO BID [facility] Last Admin: 11/06/18 20:52 Dose: 12.5 mg Cetirizine HCl (Zyrtec*) 10 mg PO DAILY PRN PRN Reason: Allergy Symptoms Famotidine (Pepcid Tab*) 20 mg PO BID [facility]; Protocol Last Admin: 11/06/18 20:52 Dose: 20 mg Hydroxyzine HCl (Atarax Tab*) 50 mg PO Q6H PRN PRN Reason: anxiety Last Admin: 11/04/18 09:22 Dose: 50 mg Multivitamins (Theragran Tab*) 1 tab PO DAILY [facility] Last Admin: 11/06/18 09:34 Dose: 1 tab Nystatin (Nystatin Cream*) 1 applic TOPICAL BID [facility] Last Admin: 11/06/18 20:55 Dose: 1 applic Pantoprazole Sodium (Protonix Tab*) 40 mg PO DAILY [facility] Last Admin: 11/06/18 09:34 Dose: 40 mg Vortioxetine (Trintellix (Nf)) 20 mg PO DAILY [facility] Last Admin: 11/06/18 09:35 Dose: 20 mg
[2018-11-07] MEDS: Aspirin EC TAB* 81 MG TAB.EC PO SCH (09:05)
[2018-11-07] MEDS: Atorvastatin* 20 MG TAB PO SCH (09:05)
[2018-11-07] MEDS: Carvedilol TAB* 6.25 MG PO SCH ×2 (09:06→21:25)
[2018-11-07] MEDS: Pantoprazole TAB * 40 MG TAB PO SCH (09:06)
[2018-11-07] MEDS: Famotidine TAB* 20 MG PO SCH ×2 (09:06→21:26)
[2018-11-07] MEDS: BREXPIPRAZOLE 1 MG PO SCH ×2 (09:06→21:25)
[2018-11-07] MEDS: PTO: Vortioxetine (NF) 20 MG TAB (FORMERLY Brintellix) PO SCH (09:07)
[2018-11-07] MEDS: hydrOXYzine HCL TAB* 50 MG PO PRN (09:08)
[2018-11-07] MEDS: Nystatin CREAM* 15 GM TUBE TOPICAL SCH ×2 (09:09→21:28)
[2018-11-07] MEDS: Vitamin THERAPEUTIC TAB PO SCH (09:09)
[2018-11-07] MEDS: Gabapentin CAP(*) 300 MG PO SCH ×3 (12:34→21:32)
--- NOTE | 2018-11-07 16:07 | PN ---
Subjective Date of Service: 11/07/18 Interval History: Discussed stable blood pressures with patient. She tells me that her russet repairer, Dr. Hardwick, has performed an echocardiogram before and has told her she has CHF, though she is unsure which type. She tells me she has not had chronic leg edema issues in the past. She recently has not been experiencing dizziness or lightheadedness. Denies chest pain, headaches, visual changes, difficulty breathing. Past Medical History: Findings - CHF, unclear diastolic vs systolic Objective Active Medications: Acetaminophen (Tylenol Tab*) 650 mg PO Q4H PRN PRN Reason: for pain; or Temp >101 F Last Admin: 11/06/18 15:52 Dose: 650 mg Al Hydrox/Mg Hydrox/Simethicone (Maalox Plus*) 30 ml PO Q4H PRN PRN Reason: INDIGESTION Albuterol (Ventolin Hfa Inhaler*) 2 puff INH Q4H PRN PRN Reason: SOB/WHEEZING Aspirin (Aspirin Ec Tab*) 81 mg PO DAILY [facility] Last Admin: 11/07/18 09:05 Dose: 81 mg Atorvastatin Calcium (Lipitor*) 20 mg PO DAILY [facility]; Protocol Last Admin: 11/07/18 09:05 Dose: 20 mg Brexpiprazole (Rexulti) 1 mg PO BID [facility] Last Admin: 11/07/18 09:06 Dose: 1 mg Carvedilol (Coreg Tab*) 12.5 mg PO BID [facility] Last Admin: 11/07/18 09:06 Dose: 12.5 mg Cetirizine HCl (Zyrtec*) 10 mg PO DAILY PRN PRN Reason: Allergy Symptoms Famotidine (Pepcid Tab*) 20 mg PO BID [facility]; Protocol Last Admin: 11/07/18 09:06 Dose: 20 mg Gabapentin (Neurontin Cap(*)) 300 mg PO QID [facility] Last Admin: 11/07/18 12:34 Dose: 300 mg Hydroxyzine HCl (Atarax Tab*) 50 mg PO Q6H PRN PRN Reason: anxiety Last Admin: 11/07/18 09:08 Dose: 50 mg Multivitamins (Theragran Tab*) 1 tab PO DAILY [facility] Last Admin: 11/07/18 09:09 Dose: Not Given Nystatin (Nystatin Cream*) 1 applic TOPICAL BID [facility] Last Admin: 11/07/18 09:09 Dose: Not Given Pantoprazole Sodium (Protonix Tab*) 40 mg PO DAILY [facility] Last Admin: 11/07/18 09:06 Dose: 40 mg Vortioxetine (Trintellix (Nf)) 20 mg PO DAILY [facility] Last Admin: 11/07/18 09:07 Dose: 20 mg Vital Signs - 8 hr 11/07/18 11/07/18 11/07/18 09:51 12:34 14:01 Temperature 98.1 F Pulse Rate 75 Respiratory 16 16 16 Rate Blood Pressure 134/67 (mmHg) O2 Sat by Pulse 100 Oximetry 11/07/18 15:06 Temperature Pulse Rate Respiratory 16 Rate Blood Pressure (mmHg) O2 Sat by Pulse Oximetry Oxygen Devices in Use Now: None Appearance: Elderly white female, appearing in NAD Eyes: No Scleral Icterus, PERRLA Ears/Nose/Mouth/Throat: Mucous Membranes Moist Neck: - - neck supple Respiratory: Symmetrical Chest Expansion and Respiratory Effort, Clear to Auscultation Extremities: No Edema, No Clubbing, Cyanosis Skin: No Rash or Ulcers, - - skin warm, dry, intact Neurological: Alert and Oriented x 3, NL Gait, NL Muscle Strength and Tone Result Diagrams: 11/03/18 10:51 11/03/18 10:51 Assess/Plan/Problems-Billing Assessment: 73 yo female with PMHx breast CA, HTN, CHF (unclear systolic vs diastolic), DMT2 , HLD, and PTSD is admitted to the Behavioral Services Unit due to suicidal ideation. During her stay for her psychiatric admission, she was experiencing hypotension and hospital medicine was consulted. - Patient Problems (1) CHF (congestive heart failure) Current Visit: Yes Status: Acute Code(s): I50.9 - HEART FAILURE, UNSPECIFIED SNOMED Code(s): 10632334 Comment: -patient tells me she was previously diagnosed with CHF, which is why she was started on spironolactone -spironolactone alone is less effective in systolic heart failure for reducing mortality than a loop diuretic -because her blood pressures have been stable, I will restart her home spironolactone. I recommend the patient follow up with her russet repairer regarding this (2) Hypotension Current Visit: Yes Status: Acute Comment: -2/2 incorrectly high dose of lisinopril -now resolved (3) Hypertension Current Visit: No Status: Chronic Code(s): I10 - ESSENTIAL (PRIMARY) HYPERTENSION SNOMED Code(s): 47513583 Comment: -continue carvedilol -discontinue lisinopril at discharge and follow up blood pressures with PCP outpatient -normotensive (4) Diabetes Current Visit: No Status: Chronic Code(s): E11.9 - TYPE 2 DIABETES MELLITUS WITHOUT COMPLICATIONS SNOMED Code(s): 02961599 Comment: -Patient has diet-controlled DMT2 -finger sticks have not been repeated in [facility] and no recent HA1c -will order A1c for tomorrow and hospitalists will order medication changes and daily fingersticks if they are needed (5) Hyperlipidemia Current Visit: No Status: Chronic Code(s): E78.5 - HYPERLIPIDEMIA, UNSPECIFIED SNOMED Code(s): 31594194 Comment: -Continue statin (6) Suicidal ideation Current Visit: Yes Status: Acute Code(s): R45.851 - SUICIDAL IDEATIONS SNOMED Code(s): 2460207 Comment: - (7) Full code status Current Visit: Yes Status: Acute Code(s): Z78.9 - OTHER SPECIFIED HEALTH STATUS SNOMED Code(s): 769250246
--- NOTE | 2018-11-08 07:50 | PN ---
Subjective - Subjective Date of Service: 11/08/18 Service Type: 24499 Hosp care 35 min high complexity Subjective: Nancy has been "losing time" and has been walking a bit unsteadily, both symptoms of her "layers" coming out. She is generally feeling safe here. She states she is not depressed. The suicidal thoughts are reduced, but they are not gone. She states, "I probably wouldn't drink cyanide-laced esha-aid if it was given to me now. I would have at admission." Objective - General Observations Appearance: Disheveled Appears Stated Age: Yes Stature: Overweight Posture: Slumped Eye Contact: Intermittent Behavior/Activity: Slowed - Interaction Observations Attitude Towards Examiner: Cooperative, Anxious, Confused, Evasive Stated Mood: Euthymic Affect: Blunted Speech Pattern/Tone: Clear Thought Process: Coherent Perception: Depersonalization, Derealization, Reexperiencing Thought Content: Preoccupation/Ruminations, Depressive Thought Process: Lethality: Passive Wish, Suicidal Planning Hallucination Type: Denies Delusion Type: Denies - Cognitive Function Orientation: A&O x 4 Level of Consciousness: Awake, Alert, Appropriate Cognition: Impaired Memory, Impaired Attention/Concentration Estimated Intelligence: Normal Insight: WNL Judgment Within Normal Limits: No Ability to Make Reasonable Decisions: Serverely Impaired - Medication Compliance Cooperative with Inpatient Medication Regimen: Yes - Group Participation Participates in Group Activities: Partial Assessment - Assessment Merits Inpatient Hospitalization: For Immediate Safety Clinical Impression: Admitted due to active SI and a plan. Plan - Plan Treatment Plan: Name: NANCY STRANGE Birthdate: 1945 [id number] Continue medications as they are in outpatient. Focus on safety concerns. 11/07/18 Nancy will continue to participate in milieu activities and take care to preserve her energy as she becomes unsteady on her feet at times. Continued Medication Management: Continue Outpt Medication Medications: Current Medications Acetaminophen (Tylenol Tab*) 650 mg PO Q4H PRN PRN Reason: for pain; or Temp >101 F Last Admin: 11/06/18 15:52 Dose: 650 mg Al Hydrox/Mg Hydrox/Simethicone (Maalox Plus*) 30 ml PO Q4H PRN PRN Reason: INDIGESTION Albuterol (Ventolin Hfa Inhaler*) 2 puff INH Q4H PRN PRN Reason: SOB/WHEEZING Aspirin (Aspirin Ec Tab*) 81 mg PO DAILY [facility] Last Admin: 11/07/18 09:05 Dose: 81 mg Atorvastatin Calcium (Lipitor*) 20 mg PO DAILY [facility]; Protocol Last Admin: 11/07/18 09:05 Dose: 20 mg Brexpiprazole (Rexulti) 1 mg PO BID [facility] Last Admin: 11/07/18 21:25 Dose: 1 mg Carvedilol (Coreg Tab*) 12.5 mg PO BID [facility] Last Admin: 11/07/18 21:25 Dose: 12.5 mg Cetirizine HCl (Zyrtec*) 10 mg PO DAILY PRN PRN Reason: Allergy Symptoms Famotidine (Pepcid Tab*) 20 mg PO BID [facility]; Protocol Last Admin: 11/07/18 21:26 Dose: 20 mg Gabapentin (Neurontin Cap(*)) 300 mg PO QID [facility] Last Admin: 11/07/18 21:32 Dose: Not Given Hydroxyzine HCl (Atarax Tab*) 50 mg PO Q6H PRN PRN Reason: anxiety Last Admin: 11/07/18 09:08 Dose: 50 mg Multivitamins (Theragran Tab*) 1 tab PO DAILY [facility] Last Admin: 11/07/18 09:09 Dose: Not Given Nystatin (Nystatin Cream*) 1 applic TOPICAL BID [facility] Last Admin: 11/07/18 21:28 Dose: 1 applic Pantoprazole Sodium (Protonix Tab*) 40 mg PO DAILY [facility] Last Admin: 11/07/18 09:06 Dose: 40 mg Spironolactone (Aldactone Tab*) 25 mg PO DAILY [facility] Vortioxetine (Trintellix (Nf)) 20 mg PO DAILY [facility] Last Admin: 11/07/18 09:07 Dose: 20 mg
[2018-11-08] MEDS: Aspirin EC TAB* 81 MG TAB.EC PO SCH (09:15)
[2018-11-08] MEDS: Gabapentin CAP(*) 300 MG PO SCH ×4 (09:15→19:55)
[2018-11-08] MEDS: Famotidine TAB* 20 MG PO SCH ×2 (09:16→19:57)
[2018-11-08] MEDS: Spironolactone TAB* 25 MG PO SCH ×2 (09:19→09:30)
[2018-11-08] MEDS: Atorvastatin* 20 MG TAB PO SCH (09:19)
[2018-11-08] MEDS: Pantoprazole TAB * 40 MG TAB PO SCH (09:21)
[2018-11-08] MEDS: BREXPIPRAZOLE 1 MG PO SCH ×2 (09:22→19:57)
[2018-11-08] MEDS: Vitamin THERAPEUTIC TAB PO SCH (09:23)
[2018-11-08] MEDS: Carvedilol TAB* 6.25 MG PO SCH ×2 (09:30→19:57)
[2018-11-08] MEDS: Nystatin CREAM* 15 GM TUBE TOPICAL SCH ×2 (09:30→19:54)
[2018-11-08] MEDS: PTO: Vortioxetine (NF) 20 MG TAB (FORMERLY Brintellix) PO SCH ×2 (10:54→11:06)
[2018-11-08] MEDS: hydrOXYzine HCL TAB* 50 MG PO PRN (18:37)
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
[2018-11-09] MEDS: Carvedilol TAB* 6.25 MG PO SCH ×2 (08:48→21:15)
[2018-11-09] MEDS: Aspirin EC TAB* 81 MG TAB.EC PO SCH (08:49)
[2018-11-09] MEDS: Atorvastatin* 20 MG TAB PO SCH (08:50)
[2018-11-09] MEDS: Pantoprazole TAB * 40 MG TAB PO SCH (08:50)
[2018-11-09] MEDS: Spironolactone TAB* 25 MG PO SCH (08:50)
[2018-11-09] MEDS: Gabapentin CAP(*) 300 MG PO SCH ×4 (08:50→21:15)
[2018-11-09] MEDS: PTO: Vortioxetine (NF) 20 MG TAB (FORMERLY Brintellix) PO SCH (08:51)
[2018-11-09] MEDS: Famotidine TAB* 20 MG PO SCH ×2 (08:51→21:15)
[2018-11-09] MEDS: Vitamin THERAPEUTIC TAB PO SCH (08:51)
[2018-11-09] MEDS: BREXPIPRAZOLE 1 MG PO SCH ×2 (08:52→21:17)
[2018-11-09] MEDS: Nystatin CREAM* 15 GM TUBE TOPICAL SCH ×2 (08:53→21:18)
--- NOTE | 2018-11-09 19:10 | PN ---
Subjective - Subjective Date of Service: 11/09/18 Service Type: [id number] Hosp care 25 min moderate complexity Subjective: Nancy is having a difficult time. She is present as Nancy at present all day, but is sad and anxious appearing. She discusses that she is very tired of having to focus very hard on being Nancy and not switching into another layer. Nancy does do some of what she calls "microswitching" which seems to be almost an intense distraction where she is very moved to be paying attention to something else. Today that something else was a harp being played in the milieu. There has been discussion with Nancy's outpatient treatment team and determining what components of her outpatient treatment will be best incorporated here. Objective - General Observations Appearance: Disheveled Appears Stated Age: Yes Stature: Overweight Posture: Slumped Eye Contact: Avoidant Behavior/Activity: Slowed, Peculiar - Interaction Observations Attitude Towards Examiner: Anxious, Confused, Defensive, Evasive Stated Mood: Dysphoric, Anxious Affect: Blunted Speech Pattern/Tone: Clear, Quiet Volume Thought Process: Coherent, Tangential Perception: Depersonalization, Derealization, Reexperiencing Thought Content: Preoccupation/Ruminations Thought Process: Lethality: Passive Wish, Suicidal Planning Hallucination Type: None Delusion Type: None - Cognitive Function Orientation: A&O x 4 Level of Consciousness: Awake, Alert, Appropriate Cognition: Impaired Cognition, Impaired Attention/Concentration Estimated Intelligence: Normal Insight: WNL Judgment Within Normal Limits: No Ability to Make Reasonable Decisions: Serverely Impaired - Medication Compliance Cooperative with Inpatient Medication Regimen: Yes - Group Participation Participates in Group Activities: Partial Assessment - Assessment Merits Inpatient Hospitalization: For Immediate Safety Clinical Impression: Admitted due to active SI and a plan. Plan - Plan Treatment Plan: Name: NANCY STRANGE Birthdate: 1945 [id number] Continue medications as they are in outpatient. Focus on safety concerns. 11/07/18 Nancy will continue to participate in milieu activities and take care to preserve her energy as she becomes unsteady on her feet at times. 11/08/18 Nancy will be monitored closely for behavior and safety. 11/09/18 Today was a day that was completely inhabited by Nancy. Encourage to remain "Nancy " will continue. Support for emotional distress will continue. Continued Medication Management: Continue Outpt Medication Medications: Current Medications Acetaminophen (Tylenol Tab*) 650 mg PO Q4H PRN PRN Reason: for pain; or Temp >101 F Last Admin: 11/06/18 15:52 Dose: 650 mg Al Hydrox/Mg Hydrox/Simethicone (Maalox Plus*) 30 ml PO Q4H PRN PRN Reason: INDIGESTION Albuterol (Ventolin Hfa Inhaler*) 2 puff INH Q4H PRN PRN Reason: SOB/WHEEZING Aspirin (Aspirin Ec Tab*) 81 mg PO DAILY [facility] Last Admin: 11/09/18 08:49 Dose: 81 mg Atorvastatin Calcium (Lipitor*) 20 mg PO DAILY [facility]; Protocol Last Admin: 11/09/18 08:50 Dose: 20 mg Brexpiprazole (Rexulti) 1 mg PO BID [facility] Last Admin: 11/09/18 08:52 Dose: 1 mg Carvedilol (Coreg Tab*) 12.5 mg PO BID [facility] Last Admin: 11/09/18 08:48 Dose: 12.5 mg Cetirizine HCl (Zyrtec*) 10 mg PO DAILY PRN PRN Reason: Allergy Symptoms Famotidine (Pepcid Tab*) 20 mg PO BID [facility]; Protocol Last Admin: 11/09/18 08:51 Dose: 20 mg Gabapentin (Neurontin Cap(*)) 300 mg PO QID [facility] Last Admin: 11/09/18 17:57 Dose: 300 mg Hydroxyzine HCl (Atarax Tab*) 50 mg PO Q6H PRN PRN Reason: anxiety Last Admin: 11/08/18 18:37 Dose: 50 mg Multivitamins (Theragran Tab*) 1 tab PO DAILY [facility] Last Admin: 11/09/18 08:51 Dose: 1 tab Nystatin (Nystatin Cream*) 1 applic TOPICAL BID [facility] Last Admin: 11/09/18 08:53 Dose: Not Given Pantoprazole Sodium (Protonix Tab*) 40 mg PO DAILY [facility] Last Admin: 11/09/18 08:50 Dose: 40 mg Spironolactone (Aldactone Tab*) 25 mg PO DAILY [facility] Last Admin: 11/09/18 08:50 Dose: 25 mg Vortioxetine (Trintellix (Nf)) 20 mg PO DAILY [facility] Last Admin: 11/09/18 08:51 Dose: 20 mg - Discharge Plan Discharge Plan: Outpatient Follow Up Outpatient Program: [facility]
[2018-11-10] MEDS: Vitamin THERAPEUTIC TAB PO SCH (08:43)
[2018-11-10] MEDS: Atorvastatin* 20 MG TAB PO SCH (08:43)
[2018-11-10] MEDS: Gabapentin CAP(*) 300 MG PO SCH ×4 (08:43→20:28)
[2018-11-10] MEDS: PTO: Vortioxetine (NF) 20 MG TAB (FORMERLY Brintellix) PO SCH (08:44)
[2018-11-10] MEDS: Aspirin EC TAB* 81 MG TAB.EC PO SCH (08:44)
[2018-11-10] MEDS: BREXPIPRAZOLE 1 MG PO SCH ×2 (08:44→20:27)
[2018-11-10] MEDS: Pantoprazole TAB * 40 MG TAB PO SCH (08:44)
[2018-11-10] MEDS: Spironolactone TAB* 25 MG PO SCH (08:44)
[2018-11-10] MEDS: Famotidine TAB* 20 MG PO SCH ×2 (08:45→20:27)
[2018-11-10] MEDS: Nystatin CREAM* 15 GM TUBE TOPICAL SCH ×2 (08:47→20:26)
[2018-11-10] MEDS: Carvedilol TAB* 6.25 MG PO SCH ×2 (11:42→20:27)
--- NOTE | 2018-11-10 16:58 | PN ---
Subjective - Subjective Date of Service: 11/10/18 Service Type: [id number] Hosp care 35 min high complexity Subjective: Nancy states she'd like to go home. She also states she's very very tired of this life and is at peace with ending her life. She says she is feeling like she is taking up bed space and is frustrated that she is not doing therapy. She said she feels like she can "go home and struggle on" and wait for it to be over. We (Mckenzie Raymond, [employer] and Ia0 discuss that the focus here is for her to be safe. She feels safe, although she had plans to strangle herself on the unit. We talk about discharge and she says she'll propose going to [facility] from[facility] 8:30 to 4:30 M-F and then spend nights with her family. She talks about "doing pours" (an art modality she uses) and watching them on YouTube. Objective - General Observations Appearance: Disheveled Appears Stated Age: Yes Stature: Overweight Posture: Slumped Eye Contact: Average Behavior/Activity: Slowed - Interaction Observations Attitude Towards Examiner: Evasive Stated Mood: Dysphoric Affect: Flat Speech Pattern/Tone: Clear, Normal Volume Thought Process: Coherent, Cool Perception: Depersonalization, Derealization Thought Content: Preoccupation/Ruminations, Self-Deprecatory Thought Process: Lethality: Passive Wish, Suicidal Planning Hallucination Type: None Delusion Type: None - Cognitive Function Orientation: A&O x 4 Level of Consciousness: Awake, Alert, Appropriate Cognition: WNL Estimated Intelligence: Normal Insight: Mostly Blames Others for Problems Judgment Within Normal Limits: No Ability to Make Reasonable Decisions: Moderately Impaired - Medication Compliance Cooperative with Inpatient Medication Regimen: Yes - Group Participation Participates in Group Activities: Partial Assessment - Assessment Merits Inpatient Hospitalization: For Immediate Safety Inpatient DSM-V Dx: F44.81 Clinical Impression: Admitted due to active SI and a plan. Plan - Plan Treatment Plan: Name: NANCY STRANGE Birthdate: 1945 [id number] Continue medications as they are in outpatient. Focus on safety concerns. 11/07/18 Nancy will continue to participate in milieu activities and take care to preserve her energy as she becomes unsteady on her feet at times. 11/08/18 Nancy will be monitored closely for behavior and safety. 11/09/18 Today was a day that was completely inhabited by Nancy. Encourage to remain "Nancy " will continue. Support for emotional distress will continue. 11/10/18 Continue planning for outpatient safety. Plan for possible conversation with Vito Turpin, [employer], JADEN TobarW, and me. Continue to focus on safety. Continued Medication Management: Continue Outpt Medication Medications: Current Medications Acetaminophen (Tylenol Tab*) 650 mg PO Q4H PRN PRN Reason: for pain; or Temp >101 F Last Admin: 11/06/18 15:52 Dose: 650 mg Al Hydrox/Mg Hydrox/Simethicone (Maalox Plus*) 30 ml PO Q4H PRN PRN Reason: INDIGESTION Albuterol (Ventolin Hfa Inhaler*) 2 puff INH Q4H PRN PRN Reason: SOB/WHEEZING Aspirin (Aspirin Ec Tab*) 81 mg PO DAILY [facility] Last Admin: 11/10/18 08:44 Dose: 81 mg Atorvastatin Calcium (Lipitor*) 20 mg PO DAILY [facility]; Protocol Last Admin: 11/10/18 08:43 Dose: 20 mg Brexpiprazole (Rexulti) 1 mg PO BID [facility] Last Admin: 11/10/18 08:44 Dose: 1 mg Carvedilol (Coreg Tab*) 12.5 mg PO BID [facility] Last Admin: 11/10/18 11:42 Dose: Not Given Cetirizine HCl (Zyrtec*) 10 mg PO DAILY PRN PRN Reason: Allergy Symptoms Famotidine (Pepcid Tab*) 20 mg PO BID [facility]; Protocol Last Admin: 11/10/18 08:45 Dose: 20 mg Gabapentin (Neurontin Cap(*)) 300 mg PO QID [facility] Last Admin: 11/10/18 15:15 Dose: 300 mg Hydroxyzine HCl (Atarax Tab*) 50 mg PO Q6H PRN PRN Reason: anxiety Last Admin: 11/08/18 18:37 Dose: 50 mg Multivitamins (Theragran Tab*) 1 tab PO DAILY [facility] Last Admin: 11/10/18 08:43 Dose: 1 tab Nystatin (Nystatin Cream*) 1 applic TOPICAL BID [facility] Last Admin: 11/10/18 08:47 Dose: Not Given Pantoprazole Sodium (Protonix Tab*) 40 mg PO DAILY [facility] Last Admin: 11/10/18 08:44 Dose: 40 mg Spironolactone (Aldactone Tab*) 25 mg PO DAILY [facility] Last Admin: 11/10/18 08:44 Dose: 25 mg Vortioxetine (Trintellix (Nf)) 20 mg PO DAILY [facility] Last Admin: 11/10/18 08:44 Dose: 20 mg - Discharge Plan Discharge Plan: Outpatient Follow Up Outpatient Program: [facility]
[2018-11-10] MEDS: Acetaminophen TAB* 325 MG PO PRN (21:21)
[2018-11-11] MEDS: BREXPIPRAZOLE 1 MG PO SCH ×2 (09:00→20:37)
[2018-11-11] MEDS: PTO: Vortioxetine (NF) 20 MG TAB (FORMERLY Brintellix) PO SCH (09:01)
[2018-11-11] MEDS: Pantoprazole TAB * 40 MG TAB PO SCH (09:02)
[2018-11-11] MEDS: Atorvastatin* 20 MG TAB PO SCH (09:02)
[2018-11-11] MEDS: Famotidine TAB* 20 MG PO SCH ×2 (09:03→20:36)
[2018-11-11] MEDS: Aspirin EC TAB* 81 MG TAB.EC PO SCH (09:03)
[2018-11-11] MEDS: Spironolactone TAB* 25 MG PO SCH (09:05)
[2018-11-11] MEDS: Gabapentin CAP(*) 300 MG PO SCH ×4 (09:05→20:36)
[2018-11-11] MEDS: Carvedilol TAB* 6.25 MG PO SCH ×2 (09:06→20:36)
[2018-11-11] MEDS: Nystatin CREAM* 15 GM TUBE TOPICAL SCH ×2 (09:08→20:39)
[2018-11-11] MEDS: Vitamin THERAPEUTIC TAB PO SCH (10:11)
[2018-11-11] MEDS: Acetaminophen TAB* 325 MG PO PRN (11:33)
[2018-11-12] MEDS: Famotidine TAB* 20 MG PO SCH ×2 (08:51→20:37)
[2018-11-12] MEDS: Gabapentin CAP(*) 300 MG PO SCH ×4 (08:51→20:36)
[2018-11-12] MEDS: Carvedilol TAB* 6.25 MG PO SCH ×2 (08:51→20:35)
[2018-11-12] MEDS: Vitamin THERAPEUTIC TAB PO SCH (08:51)
[2018-11-12] MEDS: Aspirin EC TAB* 81 MG TAB.EC PO SCH (08:51)
[2018-11-12] MEDS: Pantoprazole TAB * 40 MG TAB PO SCH (08:52)
[2018-11-12] MEDS: Spironolactone TAB* 25 MG PO SCH (08:52)
[2018-11-12] MEDS: PTO: Vortioxetine (NF) 20 MG TAB (FORMERLY Brintellix) PO SCH (08:52)
[2018-11-12] MEDS: Atorvastatin* 20 MG TAB PO SCH (08:52)
[2018-11-12] MEDS: BREXPIPRAZOLE 1 MG PO SCH ×2 (08:53→20:37)
[2018-11-12] MEDS: Nystatin CREAM* 15 GM TUBE TOPICAL SCH ×2 (08:56→20:39)
[2018-11-12 17:15] LABS: BUN/Creatinine Ratio 14.9 (8-20); Calcium 9.4 mg/dL (8.6-10.3); EGFR African American 65.2 (>60); EGFR Non-African American 53.9 (>60); Potassium 4.5 mmol/L (3.5-5.0)
[2018-11-12] MEDS: hydrOXYzine HCL TAB* 50 MG PO PRN (23:46)
[2018-11-13] MEDS: Spironolactone TAB* 25 MG PO SCH (08:53)
[2018-11-13] MEDS: Gabapentin CAP(*) 300 MG PO SCH ×4 (08:53→20:53)
[2018-11-13] MEDS: Aspirin EC TAB* 81 MG TAB.EC PO SCH (08:54)
[2018-11-13] MEDS: Carvedilol TAB* 6.25 MG PO SCH ×2 (08:54→20:54)
[2018-11-13] MEDS: Atorvastatin* 20 MG TAB PO SCH (08:54)
[2018-11-13] MEDS: Pantoprazole TAB * 40 MG TAB PO SCH (08:54)
[2018-11-13] MEDS: PTO: Vortioxetine (NF) 20 MG TAB (FORMERLY Brintellix) PO SCH (08:54)
[2018-11-13] MEDS: Famotidine TAB* 20 MG PO SCH ×2 (08:54→20:53)
[2018-11-13] MEDS: BREXPIPRAZOLE 1 MG PO SCH ×2 (08:55→19:42)
[2018-11-13] MEDS: Vitamin THERAPEUTIC TAB PO SCH (09:59)
[2018-11-13] MEDS: Nystatin CREAM* 15 GM TUBE TOPICAL SCH ×2 (09:59→20:56)
[2018-11-13] MEDS: Acetaminophen TAB* 325 MG PO PRN (11:32)
--- NOTE | 2018-11-13 15:51 | PN ---
Subjective - Subjective Date of Service: 11/13/18 Service Type: [id number] Hosp care 35 min high complexity Subjective: Nancy met with Mckenzie Raymond LCSW, oh, and Vito Pearson LCSW (from [facility]) to discuss Vito's departure from the clinic and foray into private practice. Nancy at first did not receive the news well, giving Vito a challenging stare and then putting her hands over head and walking away rapidly. Nancy eventually came to the conclusion that she will be okay and was doing soothing things like pacing and tapping and repeating her manta, "I will not hit myself in the face." Mckenzie checked in on her later and finds that Nancy continues to self soothe. She did ask for 30 minute checks, which I declined because it is a treatment team decision and also because there is a high likelihood that Nancy would use the additional unsupervised time to self harm. Objective - General Observations Appearance: Neat Appears Stated Age: Yes Stature: Overweight Posture: Slumped Eye Contact: Intense Behavior/Activity: Slowed, Impulsive, Agitated - Interaction Observations Attitude Towards Examiner: Anxious, Confused Stated Mood: Dysphoric Affect: Labile Speech Pattern/Tone: Clear, Quiet Volume Thought Process: Coherent Perception: Depersonalization, Derealization Thought Content: Depressive, Self-Deprecatory Thought Process: Lethality: Passive Wish, Suicidal Planning Hallucination Type: None Delusion Type: None - Cognitive Function Orientation: A&O x 4 Level of Consciousness: Awake, Alert, Appropriate Cognition: Impaired Cognition, Impaired Attention/Concentration Estimated Intelligence: Normal Insight: WNL Judgment Within Normal Limits: No Ability to Make Reasonable Decisions: Moderately Impaired - Medication Compliance Cooperative with Inpatient Medication Regimen: Yes - Group Participation Participates in Group Activities: Partial Assessment - Assessment Merits Inpatient Hospitalization: For Immediate Safety Inpatient DSM-V Dx: F44.81 Clinical Impression: Admitted due to active SI and a plan. Plan - Plan Treatment Plan: Name: NANCY STRANGE Birthdate: 1945 [id number] Continue medications as they are in outpatient. Focus on safety concerns. 11/07/18 Nancy will continue to participate in milieu activities and take care to preserve her energy as she becomes unsteady on her feet at times. 11/08/18 Nancy will be monitored closely for behavior and safety. 11/09/18 Today was a day that was completely inhabited by Nancy. Encourage to remain "Nancy " will continue. Support for emotional distress will continue. 11/10/18 Continue planning for outpatient safety. Plan for possible conversation with Nancy, Vito Pearson LCSW, Mckenzie Raymond LCSW, and me. Continue to focus on safety. 11/13/18 Met with outpatient provider Vito Pearson LCSW. Nancy responded strongly. Continue with 15 minute checks and same medications. Plan to see if Nancy is calm and has remained consolidated overnight. Continued Medication Management: Different Medication Medications: Current Medications Acetaminophen (Tylenol Tab*) 650 mg PO Q4H PRN PRN Reason: for pain; or Temp >101 F Last Admin: 11/13/18 11:32 Dose: 650 mg Al Hydrox/Mg Hydrox/Simethicone (Maalox Plus*) 30 ml PO Q4H PRN PRN Reason: INDIGESTION Albuterol (Ventolin Hfa Inhaler*) 2 puff INH Q4H PRN PRN Reason: SOB/WHEEZING Aspirin (Aspirin Ec Tab*) 81 mg PO DAILY [facility] Last Admin: 11/13/18 08:54 Dose: 81 mg Atorvastatin Calcium (Lipitor*) 20 mg PO DAILY [facility]; Protocol Last Admin: 11/13/18 08:54 Dose: 20 mg Brexpiprazole (Rexulti) 1 mg PO BID [facility] Last Admin: 11/13/18 08:55 Dose: 1 mg Carvedilol (Coreg Tab*) 12.5 mg PO BID [facility] Last Admin: 11/13/18 08:54 Dose: 12.5 mg Cetirizine HCl (Zyrtec*) 10 mg PO DAILY PRN PRN Reason: Allergy Symptoms Famotidine (Pepcid Tab*) 20 mg PO BID [facility]; Protocol Last Admin: 11/13/18 08:54 Dose: 20 mg Gabapentin (Neurontin Cap(*)) 300 mg PO QID [facility] Last Admin: 11/13/18 14:10 Dose: 300 mg Hydroxyzine HCl (Atarax Tab*) 50 mg PO Q6H PRN PRN Reason: anxiety Last Admin: 11/12/18 23:46 Dose: 50 mg Multivitamins (Theragran Tab*) 1 tab PO DAILY [facility] Last Admin: 11/13/18 09:59 Dose: Not Given Nystatin (Nystatin Cream*) 1 applic TOPICAL BID [facility] Last Admin: 11/13/18 09:59 Dose: Not Given Pantoprazole Sodium (Protonix Tab*) 40 mg PO DAILY [facility] Last Admin: 11/13/18 08:54 Dose: 40 mg Spironolactone (Aldactone Tab*) 25 mg PO DAILY [facility] Last Admin: 11/13/18 08:53 Dose: 25 mg Vortioxetine (Trintellix (Nf)) 20 mg PO DAILY [facility] Last Admin: 11/13/18 08:54 Dose: 20 mg - Discharge Plan Discharge Plan: Outpatient Follow Up Outpatient Program: [facility]
[2018-11-13] MEDS: hydrOXYzine HCL TAB* 50 MG PO PRN (22:41)
[2018-11-14] MEDS: Gabapentin CAP(*) 300 MG PO SCH (08:35)
[2018-11-14] MEDS: Pantoprazole TAB * 40 MG TAB PO SCH (08:35)
[2018-11-14] MEDS: Atorvastatin* 20 MG TAB PO SCH (08:35)
[2018-11-14] MEDS: Famotidine TAB* 20 MG PO SCH (08:35)
[2018-11-14] MEDS: Aspirin EC TAB* 81 MG TAB.EC PO SCH (08:35)
[2018-11-14] MEDS: Spironolactone TAB* 25 MG PO SCH (08:36)
[2018-11-14] MEDS: Carvedilol TAB* 6.25 MG PO SCH (08:36)
[2018-11-14] MEDS: PTO: Vortioxetine (NF) 20 MG TAB (FORMERLY Brintellix) PO SCH (08:36)
[2018-11-14] MEDS: BREXPIPRAZOLE 1 MG PO SCH (08:38)
[2018-11-14] MEDS: Nystatin CREAM* 15 GM TUBE TOPICAL SCH (08:38)
[2018-11-14] MEDS: Vitamin THERAPEUTIC TAB PO SCH (08:40)
[2018-11-14 09:24] VITALS: BP 151/73
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
== END 2018-11-14 10:30 | disposition home or self-care (01) | DRG 883 ==
LOC: ED 10:15 → BSU 11:47 → ED 14:00 → BSU 11-04 19:46
PROVIDERS: ADMIT Psychiatry & Neurology Psychiatry; ATTEND Psychiatry & Neurology Psychiatry
DX: F44.81 Dissociative identity disorder (principal); R45.851 Suicidal ideations; I11.0 Hypertensive heart disease with heart failure; I50.9 Heart failure, unspecified; F43.10 Post-traumatic stress disorder, unspecified; F60.3 Borderline personality disorder; E11.9 Type 2 diabetes mellitus without complications; E78.5 Hyperlipidemia, unspecified; I95.9 Hypotension, unspecified; Z79.1 Long term (current) use of non-steroidal anti-inflammatories (NSAID); Z79.899 Other long term (current) drug therapy; Z88.5 Allergy status to narcotic agent; Z85.3 Personal history of malignant neoplasm of breast; Z79.84 Long term (current) use of oral hypoglycemic drugs; Z79.82 Long term (current) use of aspirin; Z81.1 Family history of alcohol abuse and dependence
CPT/HCPCS: 36415; 80048; 80053; 80307; 80320; 80329; 81003; 83036; 84443; 85025; 99222; 99232; 99233; 99238; 99285; A9270-GY; G0480

== ENCOUNTER 2019-03-19 16:03 | Emergency (ER) | payer MEDICARE ==
--- OUTSIDE RECORDS SUMMARY | 2019-03-19 16:09 | XMS REPORT | Summary of Care ---
:1945 Author Organization [facility] Address [address] [address] Care Team Providers Name Role Phone Bird Gonzales Primary Care Provider Sloan Hardwick Unavailable Silvino Ford MD Unavailable Bronwyn Kate RN Unavailable Unavailable Reason for Visit Reason Comments Blood Sugar Level pt states high blood sugar level 216 yesterday, high bp 190/ 92, felt shaky and states right eye felt like it got stuck. today every thing was back to normal but pt felt shaky still. Encounter Details Date Type Department Care Team Description 01/31/2019 Office Visit [place] Marjorie Bond, Essential hypertension (Primary Dx); Practice [facility] Diabetes mellitus without complication (HCC); [address] [place] [address] [place] [address] [phone] Allergies Active Allergy Reactions Severity Noted Date Comments Codeine GI Reaction 03/28/2015 Bleed; states all narcotics documented as of this encounter (statuses as of 01/31/2019) Medications Medication Sig Dispensed Refills Start End Date Status Date acetaminophen Take 1 Tab by mouth 60 Tab 0 Active (TYLENOL) 650 MG EVERY SIX HOURS 6 Oral Tab CR NEEDED (pain). albuterol HFA Take 2 Puffs by 1 Inhaler 5 Active (VENTOLIN) 108 (90 inhalation EVERY 8 Base) MCG/ACT FOUR HOURS Inhalation Aero NEEDED (wheezing). Soln Aspirin 81 MG Oral Take 1 Tab by mouth 30 Tab 0 Active Tab DAILY. 8 Brexpiprazole Take 1 mg by mouth 0 Active (REXULTI) 1 MG TWICE DAILY. Oral Tab cyclosporin Place to the 0 Active (RESTASIS) 0.05 % external eye. Ophthalmic Emulsion Syringe Luer Slip 1 Each by Does not 12 Each 0 Active 25G X 5/8" 1 ML apply route EVERY 8 Does not apply THIRTY DAYS. B12 Misc monthly TRINTELLIX 20 MG 1 Tab DAILY. 0 Active Oral Tab 9 Loratadine Take 10 mg by mouth 0 Active (CLARITIN) 10 MG NEEDED (Hives). Oral Cap lisinopril Take 1 Tab by mouth 180 Tab 0 Active (PRINIVIL, DAILY. 9 ZESTRIL) 20 MG Oral TabIndications: Essential hypertension Rosuvastatin Take 1 Tab by mouth 30 Tab 11 Active Calcium (CRESTOR) DAILY. 9 10 MG Oral TabIndications: Dyslipidemia Ranitidine 150 MG Take 1 Cap by mouth 60 Cap 1 Active Oral Cap TWICE DAILY. 9 Omeprazole 40 MG Take 1 Cap by mouth 30 Cap 3 Active Oral CAPSULE DAILY. 9 DELAYED RELEASE spironolactone Take 1 Tab by mouth 90 Tab 3 Active (ALDACTONE) 25 MG DAILY. 9 Oral TabIndications: Essential hypertension cyanocobalamin INJECT 1 ML 1 mL 11 Active (VITAMIN B12) 1000 INTRAMUSCULARLY 9 MCG/ML Injection EVERY 30 DAYS FOR Solution 360 DAYS carvedilol (COREG) Take 0.5 Tabs by 90 Tab 1 Active 25 MG Oral Tab mouth TWO TIMES 9 DAILY WITH MEALS. lisinopril TAKE 1 TABLET BY 180 Tab 1 02/01/20 Discontinued (PRINIVIL, MOUTH TWO TIMES 9 19 ZESTRIL) 20 MG DAILY Oral Tab documented as of this encounter (statuses as of 01/31/2019) Active Problems Problem Noted Date Diabetic polyneuropathy associated with type 2 diabetes mellitus 08/07/2018 Ischemic colitis 10/11/2017 B12 deficiency 05/19/2016 Combined forms of age-related cataract of both eyes 12/19/2015 Posterior vitreous detachment of right eye 12/19/2015 Hiatal hernia 03/28/2015 Overview: egd in [place] in 2013. Benign hypertension 03/28/2015 Mixed hyperlipidemia 03/28/2015 Mild intermittent asthma 03/28/2015 Overview: Mainly with URI Malignant neoplasm of right breast 03/28/2015 Overview: Had total mastectomy. No chemo or radiation. Age 66. Hives of unknown origin 03/28/2015 Overview: Claritin helps Depression, psychotic documented as of this encounter (statuses as of 01/31/2019) Resolved Problems Problem Noted Date Resolved Date Diabetes mellitus without complication 03/28/2015 08/07/2018 documented as of this encounter (statuses as of 01/31/2019) Immunizations Name Administration Dates Next Due Influenza Vaccine High Dose 12/30/2016, 12/02/2015 PNEUMOCOCCAL POLYSACCHARIDE VACCINE 01/10/2013 Pneumococcal Conjugate Vaccine 01/10/2013 Pneumococcal Conjugate(13 Valent) 01/14/2014 documented as of this encounter Social History Tobacco Use Types Packs/Day Years Used Date Never Smoker Smokeless Tobacco: Never Used Alcohol Use Drinks/Week oz/Week Comments No 0 Standard drinks or equivalent 0.0 Social Isolation Answer Date Recorded In a typical week, how many times do you More than three times a week 2018 talk on the phone with family, friends, or neighbors? How often do you get together with friends More than three times a week 05/24 or relatives? How often do you attend latter-day or Never 05/24/2018 scientologist services? Do you belong to any clubs or No 05/24/2018 organizations such as latter-day groups, unions, fraternal or athletic groups, or school groups? How often do you attend meetings of the Never 05/24/2018 clubs or organizations you belong to? Are you now , , , 05/24/2018 , never or living with a partner? Physical Activity Answer Date Recorded On average, how many days per week do you engage in moderate to 0 days 2018 strenuous exercise (like walking fast, running, jogging, dancing, swimming, biking, or other activities that cause a light or heavy sweat)? On average, how many minutes do you engage in exercise at this 0 min 2018 level? Stress Answer Date Recorded Do you feel stress - tense, restless, nervous, or anxious, Not at all 2018 or unable to sleep at night because your mind is troubled all the time - these days? Financial Resource Strain Answer Date Recorded How hard is it for you to pay for the very basics like Not hard at all 2018 food, housing, medical care, and heating? Intimate Partner Violence Answer Date Recorded Within the last year, have you been afraid of your partner or No 05/24/2018 ex-partner? Within the last year, have you been humiliated or emotionally No 05/24/2018 abused in other ways by your partner or ex-partner? Within the last year, have you been kicked, hit, slapped, or No 05/24/2018 otherwise physically hurt by your partner or ex-partner? Within the last year, have you been raped or forced to have any No 05/24/2018 kind of sexual activity by your partner or ex-partner? Food Insecurity Answer Date Recorded Within the past 12 months, you worried that your food would Never true 2018 run out before you got money to buy more. Within the past 12 months, the food you bought just didn't Never true 2018 last and you didn't have money to get more. Transportation Needs Answer Date Recorded In the past 12 months, has lack of transportation kept you from No 05/24/2018 medical appointments or from getting medications? In the past 12 months, has lack of transportation kept you from No 05/24/2018 meetings, work, or getting things needed for daily living? Sex Assigned at Date Recorded Not on file Job Start Date Occupation Industry Not on file Not on file Not on file Travel History Travel Start Travel End No recent travel history available. documented as of this encounter Last Filed Vital Signs Vital Sign Reading Time Taken Comments Blood Pressure 132/60 01/31/2019 2:53 PM EST Pulse 69 01/31/2019 2:53 PM EST Temperature 36.7 01/31/2019 2:53 PM EST C (98.1 F) Respiratory Rate - - Oxygen Saturation 98% 01/31/2019 2:53 PM EST Inhaled Oxygen Concentration - - Weight 100.7 kg (222 lb) 01/31/2019 2:53 PM EST Height 162.6 cm (5' 4") 01/31/2019 2:53 PM EST Body Mass Index 38.11 01/31/2019 2:53 PM EST documented in this encounter Patient Instructions Patient InstructionsDodgMarjorie bledsoe PA-C - 01/31/2019 3:00 PM ESTOrdered labs -- will do now -- will call with results Continue with current meds, healthy diet, keep well hydrated Regular follow up with Dr. Gonzales and psychiatrist documented in this encounter Progress Notes Marjorie Jenkins PA-C - 01/31/2019 3:00 PM EST PATIENT: Dyana Singleton : 1945 DATE OF SERVICE: 01/31/2019 REFERRING PRACTITIONER: Bird Gonzales PRIMARY CARE PROVIDER: Bird Gonzales Accompanied by family friend Naomi CHIEF COMPLAINT: Chief Complaint Patient presents with Blood Sugar Level pt states high blood sugar level 216 yesterday, high bp 190/92, felt shaky and states right eye felt like it got stuck. today every thing was back to normal but pt felt shaky still. Subjective HISTORY OF PRESENT ILLNESS: Dyana Singleton is a 73-y.o. female who presents with elevated BS and blood pressure x yesterday Yesterday morning felt shaky, right eye felt "stuck" for a few minutes, BS was 216 Usually fasting BS is 130 Blood pressure was 190/92, knees wobbly, very tired Have been having intermittent muscle cramps x months Today feeling better Fasting BS today 147 BP 134/80 Good amount of water daily Eating healthy Saw psychiatrist this morning, was taking vrylar x 1 month, thought symptoms could be side effects of med, stopped it today Denies fever, chills, nausea, vomiting, diarrhea, chest pains, SOB Past Medical History: Diagnosis Date B12 deficiency burning mouth shots at first , now oral Breast cancer, right (HCC) 2012 Depression, psychotic (HCC) Diabetes mellitus (HCC) boderline. trouble with metformin Diabetes mellitus without complication (HCC) 03/28/2015 Dissociative identity disorder (HCC) Diverticulosis 2016 10 years Gastritis 2016 egd Hepatomegaly Hiatal hernia History of mastectomy Hypertension Idiopathic urticaria claritin q 3 days Ischemic colitis (HCC) Mild intermittent asthma with a uri Mixed hyperlipidemia aches with lipitor MARBIN (obstructive sleep apnea) 2018 ahi 9 amanda 88 Rotator cuff tear, left Statin intolerance Vasovagal episode Past Surgical History: Procedure Laterality Date APPENDECTOMY 1967 CHOLECYSTECTOMY 1971 COLONOSCOPY N/A 06/05/2015 Procedure: COLONOSCOPY; Surgeon: Herrera Gomez Jr., MD; Location: [facility] MAIN OR EGD N/A 06/05/2015 Procedure: ENDOSCOPY UPPER GI WITH COLD BIOPSY; Surgeon: Herrera Gomez Jr., MD; Location: [facility] OR [place] MASTECTOMY, SIMPLE, COMPLETE Right TONSILLECTOMY age 17 Family History Problem Relation Age of Onset Alcohol/Drug Mother Liver Disease Mother GI Mother ulcers No Known Problems Father never knew him GI Sister ulcers Alcohol/Drug Sister No Known Problems Son No Known Problems Son Other Diagnosed Disorder Brother Heart No family history Current Outpatient Medications Medication Sig acetaminophen (TYLENOL) 650 MG Oral Tab CR Take 1 Tab by mouth EVERY SIX HOURS NEEDED (pain). albuterol HFA (VENTOLIN) 108 (90 Base) MCG/ACT Inhalation Aero Soln Take 2 Puffs by inhalation EVERY FOUR HOURS NEEDED (wheezing). Aspirin 81 MG Oral Tab Take 1 Tab by mouth DAILY. Brexpiprazole (REXULTI) 1 MG Oral Tab Take 1 mg by mouth TWICE DAILY. carvedilol (COREG) 25 MG Oral Tab Take 0.5 Tabs by mouth TWO TIMES DAILY WITH MEALS. cyanocobalamin (VITAMIN B12) 1000 MCG/ML Injection Solution INJECT 1 ML INTRAMUSCULARLY EVERY30 DAYS FOR 360 DAYS cyclosporin (RESTASIS) 0.05 % Ophthalmic Emulsion Place to the external eye. lisinopril (PRINIVIL, ZESTRIL) 20 MG Oral Tab Take 1 Tab by mouth DAILY. Loratadine (CLARITIN) 10 MG Oral Cap Take 10 mg by mouth NEEDED (Hives ). Omeprazole 40 MG Oral CAPSULE DELAYED RELEASE Take 1 Cap by mouth DAILY. Ranitidine 150 MG Oral Cap Take 1 Cap by mouth TWICE DAILY. Rosuvastatin Calcium (CRESTOR) 10 MG Oral Tab Take 1 Tab by mouth DAILY. spironolactone (ALDACTONE) 25 MG Oral Tab Take 1 Tab by mouth DAILY. Syringe Luer Slip 25G X 5/8" 1 ML Does not apply Misc 1 Each by Does not apply route EVERY THIRTY DAYS. B12 monthly TRINTELLIX 20 MG Oral Tab 1 Tab DAILY. No current facility-administered medications for this visit. Allergies Allergen Reactions Codeine GI Reaction Bleed; states all narcotics Social History Socioeconomic History Marital status: Spouse name: Not on file Number of children: 2 Years of education: Not on file Highest education level: Not on file Occupational History Not on file Social Needs Financial resource strain: Not hard at all Food insecurity Worry: Never true Inability: Never true Transportation needs Medical: No Non-medical: No Tobacco Use Smoking status: Never Smoker Smokeless tobacco: Never Used Substance and Sexual Activity Alcohol use: No Alcohol/week: 0.0 standard drinks Drug use: No Sexual activity: Not Currently Lifestyle Physical activity Days per week: 0 days Minutes per session: 0 min Stress: Not at all Relationships Social connections Talks on phone: More than three times a week Gets together: More than three times a week Attends scientologist service: Never Active member of club or organization: No Attends meetings of clubs or organizations: Never Relationship status: Intimate partner violence Fear of current or ex partner: No Emotionally abused: No Physically abused: No Forced sexual activity: No Other Topics Concern Back Care Not Asked Bike Helmet Not Asked Blood Transfusions Not Asked Caffeine Concern Not Asked Exercise Not Asked Hobby Hazards Not Asked International Travel Not Asked Service Not Asked Occupational Exposure Not Asked Seat Belt Not Asked Self-Exams Not Asked Sleep Concern Not Asked Special Diet Not Asked Stress Concern Not Asked Weight Concern Not Asked Social History Narrative Lives at [facility]. From [place]. Has 3 grand daughters. Retired. REVIEW OF SYSTEMS: Skin: negative skin lesions Eyes: negative visual blurring Ears/Nose/Throat: negative rhinorrhea or sore throat Respiratory: negative cough. Positive asthma Cardiovascular: negative chest pain Gastrointestinal: negative abdominal pain, constipation, diarrhea, nausea or vomiting Genitourinary: negative burning on urination, dysuria or vaginal discharge Musculoskeletal: positive arthritis/joint pain, muscle cramping Neurologic: negative numbness or tingling of feet or hands Psychiatric: positive depression Hematologic/Lymphatic/Immunologic: negative allergies Endocrine: positive diabetes II Objective PHYSICAL EXAMINATION: VITALS: BP 132/60 (BP Location: Left arm, Patient Position: Sitting) | Pulse 69 | Temp 98.1 F(36.7 C) | Ht 5' 4" (1.626 m) | Wt 222 lb (100.7 kg) | SpO2 98% | BMI 38.11 kg/m Body mass index is 38.11 kg/m. General appearance - alert, no distress, cooperative, oriented times 3 Skin - Skin color, texture, turgor normal. No rashes or lesions. Head - Normocephalic. No masses, lesions, tenderness or abnormalities Eyes - conjunctivae/corneas clear. PERRL, EOM's intact. Oropharynx - Lips, mucosa, and tongue normal. Teeth and gums normal. Oropharynx normal. Neck - Neck supple, FROM. No cervical or supraclavicular adenopathy. Thyroid normal, no enlargement Lungs - Good diaphragmatic excursion. Lungs clear. Chest symmetrical. Normal breath sounds. Heart - RRR. No murmurs, clicks or gallops. No peripheral edema. NEUROLOGIC: alert, oriented x3. Gait normal. UE and LE Reflexes and motor strength normal and symmetric. Cranial nerves 2-12 and sensation grossly intact.. . IMPRESSION: ICD-9-CM ICD-10-CM 1. Essential hypertension 401.9 I10 COMPREHENSIVE METABOLIC PANEL CBC WITH DIFFERENTIAL 2. Diabetes mellitus without complication (HCC) 250.00 E11.9 GLYCOHEMOGLOBIN A1C 3. Malaise and fatigue 780.79 R53.81 THYROID STIMULATING HORMONE R53.83 Plan PLAN: Ordered labs -- will do now -- will call with results Continue with current meds, healthy diet, keep well hydrated Regular follow up with Dr. Gonzales and psychiatrist Author: Marjorie Jenkins PA-C 01/31/2019 15:04 documented in this encounter Plan of Treatment Date Type Specialty Care Team Description 03/14/2019 Office Visit Family Practice Bird Gonzales MD [address] [place] [address] [phone] 06/06/2019 Chronic Care Management Family Practice Name Type Priority Associated Diagnoses Date/Time COMPREHENSIVE METABOLIC Lab Routine Essential hypertension 01/31/2019 3: 28 PM PANEL EST CBC WITH DIFFERENTIAL Lab Routine Essential hypertension 01/31/2019 3:28 PM EST THYROID STIMULATING HORMONE Lab Routine Malaise and fatigue 01/31/2019 3: 28 PM EST GLYCOHEMOGLOBIN A1C Lab Routine Diabetes mellitus 01/31/2019 3:28 PM without complication EST (HCC) Name Type Priority Associated Diagnoses Order Schedule COMPREHENSIVE METABOLIC Lab Routine Essential hypertension Expected: 2018 PANEL (Approximate), Expires: 02/01/2020 CBC WITH DIFFERENTIAL Lab Routine Essential hypertension Expected: 2018 (Approximate), Expires: 02/01/2020 THYROID STIMULATING HORMONE Lab Routine Malaise and fatigue Expected: 01/31 (Approximate), Expires: 02/01/2020 GLYCOHEMOGLOBIN A1C Lab Routine Diabetes mellitus Expected: 01/31/2019 without complication (Approximate), (HCC) Expires: 02/01/2020 Health Maintenance Due Date Last Done Comments DTaP/Tdap/Td Vaccines (1 - 1957 Tdap) ZOSTER IMMUNIZATION SERIES 1996 (1 of 2) INFLUENZA VACCINE (#1) 2018 12/30/2016, 12/02/2015 HEMOGLOBIN A1C 02/06/2019 08/07/2018, 09/24/2017, 08/01/2017, Additional history exists DEPRESSION SCREENING 05/25/2019 05/24/2018, 05/24/2018 FALL RISK ASSESSMENT 05/25/2019 05/24/2018, 05/24/2018 MEDICARE ANNUAL WELLNESS 05/25/2019 05/24/2018, 01/04/2017 VISIT FOOT EXAM 08/08/2019 08/07/2018, 08/07/2018, 01/14/2016 LIPID DISORDER SCREENING 08/08/2019 08/07/2018, 05/08/2018, 09/24/2017, Additional history exists Diabetic Eye Exam 02/26/2020 02/25/2018, 12/19/2015, 12/19/2015, Additional history exists Colonoscopy 06/04/2025 06/05/2015, 06/05/2015, 02/22/2012 OSTEOPOROSIS SCREENING 07/07/2025 07/08/2015 PNEUMOCOCCAL 65+YRS Completed 01/14/2014, 01/10/2013, 01/10/2013 HEPATITIS A IMMUNIZATION Aged Out No longer eligible SERIES based on patient's age to complete this topic HPV IMMUNIZATION SERIES Aged Out No longer eligible based on patient's age to complete this topic MENINGOCOCCAL VACCINE IMM Aged Out No longer eligible based on patient's age to complete this topic documented as of this encounter Goals Goal Patient Goal Associated Recent Patient-Stated? Author Type Problems Progress Blood Pressure Blood Pressure 132/60 No Christian, < 140/90 (01/31/2019 MD Bird 2:53 PM EST) Note: This is an individualized treatment (blood pressure) goal for Dyana Singleton: Displayed above (on the left) is your goal for blood pressure control. Your most recent blood pressure is also shown above, on the right. You should try to achieve blood pressures that are lower than your goal listed above (on the left). Depression screen (PHQ-9) Depression 6 (05/24/2018 4:30 PM No Bird Gonzales MD total score < 5 EDT) Note: This is an individualized treatment (depression) goal for Dyana Singleton: Displayed above is your goal for a depression screening (PHQ-9) score that would indicate good control of your depression. Glycohemoglobin A1c < 7.0 Diabetes 6.4 (08/07/2018 11:07 AM No Bird Gonzales MD EDT) Note: This is an individualized treatment (diabetes control, HgbA1C) goal for Dyana Singleton: Displayed above is your progress towards your HgbA1C goal. Your goal is shown above (on the left); your most recent HgbA1C is shown on the right. Note that lower numbers are better. Weight loss vs. 18 mo Lifestyle 0.7 (01/31/2019 2:53 PM EST) No Bird Gonzales MD max (lbs) >= 10 Note: This is an individualized lifestyle goal for Dyana Singleton: Your body mass index (BMI) is more than 30. You should lose weight. A reasonable starting goal is to lose 10 pounds. Displayed above is how many pounds you have lost thus far towards your 10 pound weight loss goal. Keep a regular sleep schedule Lifestyle No Bird Gonzales MD Note: This is an individualized lifestyle goal for Dyana Singleton: Please maintain a regular sleep schedule. This may help with some symptoms of depression. Keep immunizations current Lifestyle No Bird Gonzales MD Note: This is an individualized lifestyle goal for Dyana Singleton: Please be sure to keep up-to-date on recommended immunizations. For example, this would include a yearly influenza vaccine. Immunization status can be seen by looking at the Health Maintenance sections of your [facility], Plan of Care, and any After Visit Summaries. Take all prescribed medications as directed Self-management No Bird Gonzales MD Note: This is an individualized self-management goal for Dyana Singleton: Please take all prescribed medications as directed. 1. Do not skip doses. If you cannot afford your medications, talk with your doctor. 2. Use a pill reminder system such as a pill box if needed. Your pharmacist can help you with this. 3. Contact your Pharmacy 5 days before your medication runs out. If you cannot take your medications for any reasons, talk with your doctor. 4. Please bring all of your medication bottles and inhalers (or a list of all your medications/inhalers) with you to every visit. Potential barriers to meeting all of your care plan goals will continue to be addressed on an ongoing basis. documented as of this encounter Results Not on filedocumented in this encounter Visit Diagnoses Diagnosis Essential hypertension Unspecified essential hypertension Diabetes mellitus without complication (HCC) Type II or unspecified type diabetes mellitus without mention of complication, not stated as uncontrolled Malaise and fatigue Other malaise and fatigue documented in this encounter Insurance Payer Benefit Plan / Subscriber ID Effective Dates Phone Address Type Group MEDICARE MEDICARE PART A xxxxxxxxxxx 2011-Present Medicare & B [facility] xxxxxxxxxxx 2016-Present [facility] OPT[employer] documented as of this encounter
[2019-03-19 16:22] VITALS: BP 134/53
--- NOTE | 2019-03-19 16:36 | UC ---
FLU HPI - HPI Summary HPI Summary: 73 y/o female presents to the urgent care accompany by daughter c/o nasal congestion, clear nasal discharge, body aches, LEACH, diarrhea and fever for the past 3 days. Pt reports last night she developed productive cough, and wheezing. She has been using her albuterol inhaler, Tylenol PO and drinking fluids to alleviate symptom. Pt developed fever of 101F yesterday. She has had 2 episodes of watery loose stools each day. Today she feels w/ nauseous and denies vomiting, abdominal pain, neck pain, dizziness, chest pain, or rash. - History of Current Complaint Chief Complaint: UCRespiratory Stated Complaint: FLU SYMPTOMS Time Seen by Provider: 03/19/19 16:23 Hx Obtained From: Patient Onset/Duration: Gradual Onset, Lasting Days - 5 days, Still Present, Worse Since - yesterday Severity Currently: Mild Severity Initially: Moderate Pain Intensity: 6 - body aches Pain Scale Used: 0-10 Numeric Associated Signs & Symptoms: Positive: Fever, T Max - 101F, Myalgia, Nasal Congestion - clear, Headache. Negative: Sore Throat, Vomiting, Diarrhea - Risk Factors Influenza Risk Factors: Negative - Allergy/Home Medications Allergies/Adverse Reactions: Allergies Allergy/AdvReac Type Severity Reaction Status Date / Time codeine Allergy Bleeding Verified 03/19/19 16:22 Home Medications: Home Medications Cyanocobalamin INJ * [Vitamin B12 INJ *] 1 dose IM SEE INSTRUCTIONS 03/19/19 [ History Confirmed 03/19/19] Nystatin 1 dose TOPICAL DAILY PRN 03/19/19 [History Confirmed 03/19/19] PMH/Surg Hx/FS Hx/Imm Hx Previously Healthy: Yes Endocrine History: Diabetes, Dyslipidemia Cardiovascular History: Hypertension Respiratory History: Asthma Psychological History: Anxiety, Depression - Surgical History Surgical History: Yes Surgery Procedure, Year, and Place: right mastectomy, cholecystectomy, appendectomy - Family History Known Family History: Positive: Hypertension, Other - psychotic disorder, depression, alcohol abuse Negative: Cardiac Disease, Diabetes - Social History Occupation: Retired Lives: With Family Alcohol Use: None Substance Use Type: None Smoking Status (MU): Never Smoked Tobacco Amount Used/How Often: Pt has not used tobacco product in the past 30 days Have You Smoked in the Last Year: No - Immunization History Most Recent Influenza Vaccination: two years ago per patient Most Recent Tetanus Shot: 2014 Most Recent Pneumonia Vaccination: patient reports she has received in the past Review of Systems All Other Systems Reviewed And Are Negative: Yes Constitutional: Positive: Fever, Chills, Fatigue, Other - body aches Skin: Positive: Negative Eyes: Positive: Negative ENT: Positive: Nasal Discharge - clear, Sinus Congestion Respiratory: Positive: Cough - productive, Other - wheezing Cardiovascular: Positive: Negative Gastrointestinal: Positive: Diarrhea - for the past 2 days w/ 3 episodes loose stools, Nausea Genitourinary: Positive: Negative Motor: Positive: Negative Neurovascular: Positive: Negative Musculoskeletal: Positive: Myalgia Neurological: Positive: Headache Psychological: Positive: Negative Is Patient Immunocompromised?: No Physical Exam - Summary Physical Exam Summary: Vital Signs Reviewed: Yes General: well developed, well nourished old female sitting in the examining table w/o any apparent distress Eyes: Positive: Conjunctiva Clear - PERRLA, EOMI, fundi grossly normal ENT: Positive: Normal ENT inspection, Hearing grossly normal, Pharynx normal, Nasal congestion - edematous and erythematous nasal mucosa, Nasal drainage - yellowish drainage, TMs normal. Negative: Tonsillar swelling, Tonsillar exudate Neck: Positive: Supple, Nontender, No Lymphadenopathy Respiratory: no orthopnea or dyspnea. Able to speak in full sentences, no retractions or accessory muscle use, no tripod position, stridor, or head bobbing. Positive breath sounds bilaterally. mild diffuse scattered wheezing on b/L lungs, no rhonchi, no crackles or rales. Cardiovascular: Positive: RRR, No Murmur, Pulses Normal, Brisk Capillary Refill Abdomen Description: Positive: Nontender, No Organomegaly, Soft. Negative: CVA Tenderness (R), CVA Tenderness (L) Bowel Sounds: Positive: Present Musculoskeletal Exam: Normal Musculoskeletal: Positive: Strength Intact, ROM Intact, No Edema Neurological Exam: Normal Psychological Exam: Normal Skin Exam: Normal Triage Information Reviewed: Yes Vital Signs: Initial Vital Signs Temp 97.7 F 03/19/19 16:17 Pulse 62 03/19/19 16:17 Resp 18 03/19/19 16:17 BP 134/53 03/19/19 16:17 Pulse Ox 97 03/19/19 16:17 Flu Course/Dx - Course Course Of Treatment: 73 y/o female presents to the urgent care accompany by daughter c/o nasal congestion, clear nasal discharge, body aches, LEACH, diarrhea and fever for the past 3 days. Pt reports last night she developed productive cough, and wheezing. She has been using her albuterol inhaler, Tylenol PO and drinking fluids to alleviate symptom. Pt developed fever of 101F yesterday. She has had 2 episodes of watery loose stools each day. Today she feels w/ nauseous and denies vomiting, abdominal pain, neck pain, dizziness, chest pain, or rash. Hx obtained. Pt w/ a viral syndrome and mild scattered wheezes on bilaterally lungs, on examination. O2Sat:97%. Rapdi influenza A&B; positive influenza B. Chest X-ray ordered: no acute cardiopulmonary process observed. Pt given Zofran PO and Duoneb Treatment to alleviate symptoms. Pt tolerated well medications and treatment, lungs improved,and wheezing resolved. Patient prescribed Tamiflu PO and Zofran PO as directed below advised to continue w/ Albuterol inhaler to alleviate wheezing. The patient was recommended to increase fluid intake, rest eat well. Take medications as recommended. Pt advised to return to the clinic or f/u w/ her PCP if symptoms do not improve. All D/C instructions explained. If symptoms worsen advised to go immediately to the ER for further evaluation and treatment. Daughter and Patient understood and agree w/ plan of care. Pt left clinic hemodynamically stable , A&OX3 - Differential Dx/Diagnosis Differential Diagnosis/HQI/PQRI: Bronchitis, Influenza, Pneumonia, Upper Respiratory Infection Provider Diagnosis: Influenza B, Nausea, Wheezing Discharge ED - Sign-Out/Discharge Documenting (check all that apply): Patient Departure - D/C home All imaging exams completed and their final reports reviewed: No Studies - Discharge Plan Condition: Stable Disposition: HOME Prescriptions: Ondansetron ODT TAB* [Zofran 4 MG Odt TAB*] 4 mg PO Q8H PRN #6 tab.odt PRN Reason: Nausea/Vomiting Oseltamivir CAP* [Tamiflu CAP*] 75 mg PO BID #10 cap Patient Education Materials: Influenza (ED) Referrals: Reid Canada MD [Primary Care Provider] - 2 Days Additional Instructions: 1-Please take full course of Tamiflu PO as directed. 2-Continue taking Tylenol PO to alelviate pain and fever. Increase hydration, rest, eat well, and avoid strenuous exercises. 3- Continue using the albuterol inhaler to alleviate cough and wheezing. 4- If symptoms do not improve or worsen or your develop SOB with fever and severe wheezing please go immediately to the ER further evaluation and treatment. 4- F/u with your PCP in 2-3 days for further management on your Asthma - Billing Disposition and Condition Condition: STABLE Disposition: Home
[2019-03-19 16:44] LABS: Influenza B Molecular POSITIVE (Negative)
[2019-03-19] MEDS ORDERED: Acetaminophen TAB* 325 MG PO ONE (16:46)
[2019-03-19] MEDS ORDERED: Ondansetron ODT TAB* 4 MG PO ONE (16:48)
[2019-03-19] MEDS ORDERED: Albuterol/Ipratropium NEB.SOL* Albuterol 2.5 MG/Ipratropium 0.5 MG 3 ML INH ONE (16:48)
== END 2019-03-19 17:53 | disposition home or self-care (01) ==
LOC: UCEAST 16:03
DX: J10.1 Influenza due to other identified influenza virus with other respiratory manifestations (principal); I10 Essential (primary) hypertension; J45.909 Unspecified asthma, uncomplicated; R06.2 Wheezing; R11.0 Nausea; R19.7 Diarrhea, unspecified; E11.9 Type 2 diabetes mellitus without complications; Z88.5 Allergy status to narcotic agent
CPT/HCPCS: 71046; 99213; A9270-GY; G0463

== ENCOUNTER 2019-11-01 18:02 | Inpatient (IN) ==
[2019-11-01] MEDS ORDERED: Piperacillin/Tazobac ADVAN 3.375 GM in NS 0.9% 100 ml BAG 100 ML IVPB ONE (20:12)
[2019-11-01] MEDS ORDERED: NS 0.9% 1000 ml BAG 2,000 ML IV ONE (20:12)
[2019-11-01 21:03] LABS: Albumin 4.3 g/dL (3.2-5.2); Albumin/Globulin Ratio 1.5 (1-3); BUN/Creatinine Ratio 22.9 (8-20); C Reactive Protein 2.56 mg/L (<8.01); Calcium 9.7 mg/dL (8.6-10.3); EGFR African American 68.9 (>60); Globulin 2.8 g/dL (2-4); Potassium 4.4 mmol/L (3.5-5.0); Total Bilirubin 0.7 mg/dL (0.2-1.0); Total Protein 7.1 g/dL (6.4-8.9)
[2019-11-01] MEDS ORDERED: Iodixanol (CONTRAST) 320 MG/ML 100 ML SDV IV ONE (21:18)
[2019-11-01 21:27] LABS: Urine Appearance Cloudy; Urine Bilirubin Negative (Negative); Urine Blood 2+ (Negative); Urine Color Amber; Urine Glucose Negative (Negative); Urine Ketones Trace (Negative); Urine Nitrite Negative (Negative); Urine Protein Negative (Negative); Urine Specific Gravity 1.024 (1.010-1.030); Urine Urobilinogen Negative (Negative)
[2019-11-01 21:30] LABS: Urine Bacteria 1+ (Absent); Urine Red Blood Cell Trace(0-2/hpf) (Absent); Urine Squamous Epithelial Cell Present (Absent); Urine White Blood Cell Trace(0-5/hpf) (Absent)
[2019-11-01 22:49] LABS: ABS Basophils 0.1 10^3/ul (0-0.2); ABS Lymphocytes 1.7 10^3/ul (1.0-4.8); ABS Monocytes 0.6 10^3/ul (0-0.8); ABS Neutrophils 8.2 10^3/ul (1.5-7.7); Eosinophil % 0.3 %; Hematocrit 37 % (35-47); Lymphocyte % 15.6 %; Mean Corpuscular HGB Conc 35 g/dL (31-36); Mean Corpuscular Hemoglobin 31 pg (27-31); Mean Corpuscular Volume 90 fL (80-97); Mean Platelet Volume 9.8 fL (7.4-10.4); Platelet Count 202 10^3/uL (150-450); Red Blood Count 4.18 10^6 /uL (3.70-4.87); Red Cell Distribution Width 13 % (10-15); White Blood Count 10.6 10^3/uL (3.5-10.8)
[2019-11-02] MEDS ORDERED: Morphine 4 MG/ML VIAL (1 ml) IV ONE (01:20)
[2019-11-02] MEDS ORDERED: Dextrose 50% Syringe 50 ml 25 GM/50 ML SYRINGE IV PUSH PRN (02:24)
[2019-11-02] MEDS ORDERED: Morphine 2 MG/ML SYRINGE IV PRN (02:24)
[2019-11-02] MEDS ORDERED: Piperacillin/Tazobac ADVAN 3.375 GM in NS 0.9% 100 ml BAG 100 ML IVPB ONE (02:24)
[2019-11-02] MEDS ORDERED: Ondansetron 4 mg VIAL 2 MG/ML 2 ml VIAL IV PRN (02:24)
[2019-11-02] MEDS ORDERED: Nystatin TOP POWDER 15 GM BTL TOPICAL PRN (02:28)
[2019-11-02] MEDS ORDERED: Piperacillin/Tazobac ADVAN 3.375 GM in NS 0.9% 100 ml BAG 100 ML IV ONE (02:32)
[2019-11-02 02:59] LABS: ABS Eosinophils 0.1 10^3/ul (0-0.6); ABS Lymphocytes 1.8 10^3/ul (1.0-4.8); ABS Monocytes 0.7 10^3/ul (0-0.8); Eosinophil % 0.6 %; Hematocrit 35 % (35-47); Hemoglobin 11.7 g/dL (12.0-16.0); Lymphocyte % 21.2 %; Mean Corpuscular HGB Conc 33 g/dL (31-36); Mean Corpuscular Hemoglobin 30 pg (27-31); Mean Corpuscular Volume 91 fL (80-97); Mean Platelet Volume 10.1 fL (7.4-10.4); Platelet Count 173 10^3/uL (150-450); Red Blood Count 3.88 10^6 /uL (3.70-4.87); Red Cell Distribution Width 14 % (10-15); White Blood Count 8.6 10^3/uL (3.5-10.8)
[2019-11-02] MEDS ORDERED: Zosyn per Pharmacy NOTE FOLLOW UP SCH (03:00)
[2019-11-02] MEDS ORDERED: Albuterol HFA INHALER 8 gm MDI INH PRN (03:21)
[2019-11-02] MEDS: ZOSYN 3.375 GM Q8H per EXTENDED INFUSION IV SCH ×3 (05:51→20:14)
[2019-11-02] MEDS: NS 0.9% 1000 ml BAG 1,000 ML IV SCH ×2 (05:54→17:53)
[2019-11-02 06:24] LABS: Hematocrit 35 % (35-47); Hemoglobin 11.6 g/dL (12.0-16.0)
[2019-11-02 06:36] LABS: BUN/Creatinine Ratio 19.5 (8-20); EGFR African American 82.7 (>60); EGFR Non-African American 68.3 (>60); Potassium 4.2 mmol/L (3.5-5.0)
[2019-11-02] MEDS: PTO: Mirabegron 25 mg ER TAB (NF) PO SCH (07:52)
[2019-11-02] MEDS: BREXPIPRAZOLE 1 MG PO SCH ×2 (07:52→20:12)
[2019-11-02] MEDS: CMCS: Vortioxetine 10 mg TAB (NF) PO SCH (13:09)
[2019-11-02 14:44] LABS: Hematocrit 33 % (35-47); Hemoglobin 11.3 g/dL (12.0-16.0)
[2019-11-03 01:34] LABS: Hematocrit 32 % (35-47); Hemoglobin 11.3 g/dL (12.0-16.0)
[2019-11-03] MEDS: ZOSYN 3.375 GM Q8H per EXTENDED INFUSION IV SCH ×3 (04:17→20:00)
[2019-11-03 06:05] LABS: Hematocrit 32 % (35-47); Hemoglobin 10.5 g/dL (12.0-16.0)
[2019-11-03 06:08] LABS: INR 1.14 (0.82-1.09)
[2019-11-03] MEDS: PTO: Mirabegron 25 mg ER TAB (NF) PO SCH (09:06)
[2019-11-03] MEDS: BREXPIPRAZOLE 1 MG PO SCH ×2 (09:07→20:00)
[2019-11-03] MEDS: CMCS: Vortioxetine 10 mg TAB (NF) PO SCH (09:32)
[2019-11-03] MEDS ORDERED: NS 0.9% 1000 ml BAG 1,000 ML IV SCH (13:00)
[2019-11-03 15:35] LABS: Hematocrit 31 % (35-47); Hemoglobin 10.8 g/dL (12.0-16.0)
[2019-11-04] MEDS: ZOSYN 3.375 GM Q8H per EXTENDED INFUSION IV SCH ×3 (05:11→20:31)
[2019-11-04 06:00] LABS: Hematocrit 32 % (35-47); Hemoglobin 10.6 g/dL (12.0-16.0); Mean Corpuscular HGB Conc 33 g/dL (31-36); Mean Corpuscular Hemoglobin 30 pg (27-31); Mean Corpuscular Volume 92 fL (80-97); Mean Platelet Volume 9.9 fL (7.4-10.4); Platelet Count 153 10^3/uL (150-450); Red Blood Count 3.51 10^6 /uL (3.70-4.87); Red Cell Distribution Width 13 % (10-15); White Blood Count 5.7 10^3/uL (3.5-10.8)
[2019-11-04] MEDS: CMCS: Vortioxetine 10 mg TAB (NF) PO SCH (08:29)
[2019-11-04] MEDS: PTO: Mirabegron 25 mg ER TAB (NF) PO SCH (08:29)
[2019-11-04] MEDS: BREXPIPRAZOLE 1 MG PO SCH ×2 (08:29→20:29)
[2019-11-05] MEDS: ZOSYN 3.375 GM Q8H per EXTENDED INFUSION IV SCH ×3 (05:05→22:05)
[2019-11-05 07:14] LABS: Hematocrit 31 % (35-47); Hemoglobin 10.5 g/dL (12.0-16.0)
[2019-11-05] MEDS: PTO: Mirabegron 25 mg ER TAB (NF) PO SCH (10:14)
[2019-11-05] MEDS: BREXPIPRAZOLE 1 MG PO SCH ×2 (10:14→22:04)
[2019-11-05] MEDS: CMCS: Vortioxetine 10 mg TAB (NF) PO SCH ×2 (10:48→10:51)
[2019-11-06] MEDS: ZOSYN 3.375 GM Q8H per EXTENDED INFUSION IV SCH ×3 (05:21→21:59)
[2019-11-06] MEDS: PTO: Mirabegron 25 mg ER TAB (NF) PO SCH (08:46)
[2019-11-06] MEDS: BREXPIPRAZOLE 1 MG PO SCH ×2 (08:47→21:57)
[2019-11-06] MEDS: CMCS: Vortioxetine 10 mg TAB (NF) PO SCH (08:47)
[2019-11-07] MEDS: ZOSYN 3.375 GM Q8H per EXTENDED INFUSION IV SCH ×3 (05:15→22:08)
[2019-11-07 08:15] LABS: Hematocrit 31 % (35-47); Hemoglobin 10.7 g/dL (12.0-16.0)
[2019-11-07] MEDS: CMCS: Vortioxetine 10 mg TAB (NF) PO SCH (08:46)
[2019-11-07] MEDS: BREXPIPRAZOLE 1 MG PO SCH ×2 (08:46→22:04)
[2019-11-07] MEDS: PTO: Mirabegron 25 mg ER TAB (NF) PO SCH (08:46)
[2019-11-08] MEDS: ZOSYN 3.375 GM Q8H per EXTENDED INFUSION IV SCH (05:30)
[2019-11-08] MEDS: PTO: Mirabegron 25 mg ER TAB (NF) PO SCH (08:46)
[2019-11-08] MEDS: CMCS: Vortioxetine 10 mg TAB (NF) PO SCH (08:47)
[2019-11-08] MEDS: BREXPIPRAZOLE 1 MG PO SCH (08:47)
[2019-11-08] MEDS ORDERED: Influenza VAC *QUAD* 2020-21* 0.5 ML SYRINGE IM ONE (09:00)
[2019-11-08 11:08] VITALS: BP 150/78
== END 2019-11-08 13:45 | disposition home or self-care (01) | DRG 394 ==
LOC: ED 18:02 → MED 11-02 02:21
PROVIDERS: ADMIT Nurse Practitioner Family; ATTEND Internal Medicine

== ENCOUNTER 2019-11-10 18:59 | Inpatient (IN) ==
[2019-11-10 20:12] LABS: ABS Basophils 0.1 10^3/ul (0-0.2); ABS Eosinophils 0.2 10^3/ul (0-0.6); ABS Lymphocytes 1.5 10^3/ul (1.0-4.8); ABS Monocytes 0.6 10^3/ul (0-0.8); ABS Neutrophils 3.9 10^3/ul (1.5-7.7); Eosinophil % 2.9 %; Hematocrit 31 % (35-47); Hemoglobin 10.6 g/dL (12.0-16.0); Lymphocyte % 23.4 %; Mean Corpuscular HGB Conc 34 g/dL (31-36); Mean Corpuscular Hemoglobin 31 pg (27-31); Mean Corpuscular Volume 90 fL (80-97); Mean Platelet Volume 9.6 fL (7.4-10.4); Nucleated Red Blood Cells % 0.1; Platelet Count 185 10^3/uL (150-450); Red Blood Count 3.41 10^6 /uL (3.70-4.87); Red Cell Distribution Width 14 % (10-15); White Blood Count 6.2 10^3/uL (3.5-10.8)
[2019-11-10 20:24] LABS: Albumin 3.7 g/dL (3.2-5.2); Albumin/Globulin Ratio 1.5 (1-3); BUN/Creatinine Ratio 13.5 (8-20); Calcium 9.1 mg/dL (8.6-10.3); EGFR African American 93.1 (>60); EGFR Non-African American 76.9 (>60); Globulin 2.4 g/dL (2-4); Potassium 4.2 mmol/L (3.5-5.0); Total Bilirubin 0.4 mg/dL (0.2-1.0); Total Protein 6.1 g/dL (6.4-8.9)
[2019-11-10 20:25] LABS: Troponin I 0.01 ng/mL (<0.03)
[2019-11-10] MEDS ORDERED: Furosemide 40 mg/4 ml IV VIAL IV ONE (22:59)
[2019-11-10] MEDS ORDERED: Enoxaparin 40 MG/0.4 ML SYR SUBCUT SCH (23:00)
[2019-11-10] MEDS ORDERED: Dextrose 50% Syringe 50 ml 25 GM/50 ML SYRINGE IV PUSH PRN (23:55)
[2019-11-11 01:23] LABS: HDL Cholesterol 40.4 mg/dL; Magnesium 1.7 mg/dL (1.9-2.7)
[2019-11-11 01:35] LABS: TSH Ultra Thyroid Stim Horm 2.85 mcIU/mL (0.34-5.60)
[2019-11-11] MEDS ORDERED: Magnesium Sulfate 2 gm BAG 2 GM/50 ML BAG IVPB ONE (01:42)
[2019-11-11] MEDS: BREXPIPRAZOLE 1 MG PO SCH ×2 (08:26→20:15)
[2019-11-11] MEDS: CMCS:Vortioxetine 10 mg TAB (NF) PO SCH (08:35)
[2019-11-11 09:13] LABS: BUN/Creatinine Ratio 10.3 (8-20); Calcium 9.5 mg/dL (8.6-10.3); EGFR African American 87.6 (>60); EGFR Non-African American 72.4 (>60); Potassium 3.4 mmol/L (3.5-5.0)
[2019-11-11 09:16] LABS: ABS Basophils 0.1 10^3/ul (0-0.2); ABS Eosinophils 0.2 10^3/ul (0-0.6); ABS Lymphocytes 1.6 10^3/ul (1.0-4.8); ABS Monocytes 0.6 10^3/ul (0-0.8); ABS Neutrophils 4.4 10^3/ul (1.5-7.7); Eosinophil % 2.8 %; Hematocrit 36 % (35-47); Hemoglobin 11.8 g/dL (12.0-16.0); Lymphocyte % 23.6 %; Mean Corpuscular HGB Conc 33 g/dL (31-36); Mean Corpuscular Hemoglobin 30 pg (27-31); Mean Corpuscular Volume 90 fL (80-97); Platelet Count 226 10^3/uL (150-450); Red Blood Count 3.93 10^6 /uL (3.70-4.87); Red Cell Distribution Width 14 % (10-15); White Blood Count 6.9 10^3/uL (3.5-10.8)
[2019-11-12 06:28] LABS: BUN/Creatinine Ratio 16.9 (8-20); EGFR African American 88.9 (>60); EGFR Non-African American 73.5 (>60); Potassium 3.6 mmol/L (3.5-5.0)
[2019-11-12] MEDS: BREXPIPRAZOLE 1 MG PO SCH (07:17)
[2019-11-12] MEDS: CMCS:Vortioxetine 10 mg TAB (NF) PO SCH (09:10)
[2019-11-12 14:58] VITALS: BP 138/62
== END 2019-11-12 17:21 | disposition home or self-care (01) | DRG 292 ==
LOC: ED 18:59 → MEDTELE 18:59
PROVIDERS: ADMIT Nurse Practitioner Family; ATTEND Internal Medicine